=== PATIENT | female | born 1960 | race Caucasian/White ===

== ENCOUNTER 2022-04-01 08:09 | Outpatient (CLI) | payer OTHER, SELFPAY | END 2022-04-01 08:10 | disposition home or self-care (01) | PROVIDERS: Visit Provider Otolaryngology | DX: H90.3 Sensorineural hearing loss, bilateral (principal) | CPT/HCPCS: 92557; 92567 ==

== ENCOUNTER 2022-05-06 13:16 | Outpatient (CLI) | payer OTHER, SELFPAY ==
--- NOTE | ~2022-05-06 | MR_ITS ---
EXAMINATION: MR brain IAC wo/w con DATE: 05/06/2022 14:26 INDICATION: Sensorineural hearing loss TECHNIQUE: Magnetic resonance imaging (MRI) of the brain and internal auditory canals was performed w ithout and with 15 mL Multihance intravenous contrast. Sequences included sagittal and axial T1-weigh eitan FSE, axial diffusion-weighted FS EPI, axial 3D SWAN, axial T2-weighted FLAIR Propeller, axial T2- weighted Propeller, small psizj-cc-mcbg coronal FIESTA, small jdqgl-ld-ddtj coronal T1-weighted FSE, and small hqxgb-st-xerd axial 3D T1-weighted COTE. Postcontrast sequences included axial and coronal T1-weighted FSE and axial 3D T1-weighted COTE. Apparent diffusion coefficient (ADC) maps were creat ed. COMPARISON: None. FINDINGS: There are no areas of restricted diffusion to suggest acute infarction. No intracranial hemorrhage or abnormal intracranial mass lesion. There are a few scattered areas of nonspecific increased T2-weigh eitan signal intensity in the cerebral white matter, predominantly involving the deep and periventricul ar white matter which is within normal limits for age. There are no intraparenchymal signal abnormali ties seen on the other pulse sequences. The ventricles are symmetric and normal in size. There are no abnormal extra-axial fluid collections. Normal seventh/eighth cranial nerve complexes. No cerebellop ontine angles masses. No evidence of mastoid or middle ear fluid. Flow voids are seen in the cerebra l arteries on the T2-weighted sequences consistent with their expected patency. Visualized orbits and soft tissues are unremarkable. There are no areas of abnormal enhancement on the post contrast image s. IMPRESSION: 1. A few small foci of scattered white matter T2 hyperintensity which is within normal limits for age . No acute intracranial process or evident etiology for reported sensorineural hearing loss. Reviewed, dictated and finalized at location A. IMPRESSION: 1. A few small foci of scattered white matter T2 hyperintensity which is within normal limits for age. No acute intracranial process or evident etiology for r eported sensorineural hearing loss.
[2022-05-06 13:49] LABS: Estimated Glomerular Filt Rate > 60
== END 2022-05-06 13:17 | disposition home or self-care (01) ==
PROVIDERS: PCP Family Medicine; Visit Provider Otolaryngology
DX: H90.5 Unspecified sensorineural hearing loss (principal)
CPT/HCPCS: 70553; A9577

== ENCOUNTER 2022-06-14 11:13 | Outpatient (CLI) | payer OTHER, SELFPAY ==
--- NOTE | ~2022-06-14 | MM_ITS ---
EXAMINATION: MM screening cyndy BI w cecilia HISTORY: Screening mammogram TECHNIQUE: Craniocaudal and mediolateral oblique 3-D tomosynthesis images were obtained and synthetic 2-D images were generated. CAD analysis was submitted and interpreted. COMPARISON: No prior mammogram is available for comparison at this institution. BREAST PARENCHYMAL COMPOSITION: The breasts are heterogeneously dense, which may obscure small masses . FINDINGS: RIGHT BREAST: There are possible low-density masses in the outer right breast. LEFT BREAST: Grouped calcifications are present in the middle third of the outer breast which may rel ate to prior excisional biopsy. IMPRESSION: 1. Bilateral breast findings as described above which may represent the patient's baseline however no comparison is currently available. 2. Comparison with prior mammograms is necessary. BI-RADS Category 0: Incomplete: Needs comparison with prior mammograms. Reviewed, dictated and finalized at location A. IMPRESSION: 1. Bilateral breast findings as described above which may represent the patient 's baseline however no comparison is currently available. 2. Comparison with prior mammograms is necessary. BI-RADS Category 0: Incomplete: Needs comparison with prior mammograms.
== END 2022-06-14 11:14 | disposition home or self-care (01) ==
LOC: ANHIMG 11:16
PROVIDERS: PCP Family Medicine; Visit Provider Family Medicine
DX: Z12.31 Encounter for screening mammogram for malignant neoplasm of breast (principal); R92.8 Other abnormal and inconclusive findings on diagnostic imaging of breast
CPT/HCPCS: 77063; 77067

== ENCOUNTER 2022-06-26 14:00 | Outpatient (RCR) | payer OTHER, SELFPAY | END 2022-08-20 23:59 | disposition home or self-care (01) | LOC: ANHAUDASC 14:00 | PROVIDERS: PCP Family Medicine; Visit Provider Otolaryngology | DX: Z46.1 Encounter for fitting and adjustment of hearing aid (principal) | CPT/HCPCS: 99199; V5257 ==

== ENCOUNTER 2022-08-22 12:08 | Outpatient (RCR) | payer OTHER, SELFPAY | END 2022-11-20 23:59 | disposition home or self-care (01) | LOC: ANHAUDASC 12:08 | PROVIDERS: PCP Family Medicine; Visit Provider Family Medicine | DX: Z46.1 Encounter for fitting and adjustment of hearing aid (principal) | CPT/HCPCS: V5014 ==

== ENCOUNTER 2024-02-11 07:06 | Outpatient (CLI) | payer OTHER, SELFPAY ==
--- NOTE | ~2024-02-11 | MM_ITS ---
EXAMINATION: MM screening cyndy BI w cecilia HISTORY: Screening TECHNIQUE: Craniocaudal and mediolateral oblique 3-D tomosynthesis images were obtained and synthetic 2-D images were generated. CAD analysis was submitted and interpreted. COMPARISON: Comparison to multiple prior studies sequentially, with oldest reviewed study dated 08/03. BREAST PARENCHYMAL COMPOSITION: Dense: The breasts are heterogeneously dense, which may obscure small masses FINDINGS: There is no evidence of suspicious mass, calcification, or architectural distortion to sugg est malignancy in either breast. There has been no suspicious interval change. IMPRESSION: 1. No mammographic evidence of malignancy. 2. Recommend routine screening mammography in one year. BI-RADS Category 1: Negative Reviewed, dictated and finalized at location A.
== END 2024-02-11 07:07 ==
PROVIDERS: PCP Family Medicine; Visit Provider Family Medicine
DX: Z12.31 Encounter for screening mammogram for malignant neoplasm of breast (principal)
CPT/HCPCS: 77063; 77067

== ENCOUNTER 2025-03-09 14:08 | Outpatient (CLI) | payer OTHER, SELFPAY ==
--- OUTSIDE RECORDS SUMMARY | 2025-03-09 14:57 | XMS_ITS | Patient Health Record ---
Author Organization [facility] Address [address] [facility] [address] [place] [address] Care Team Providers Care Server Developer Name Role Phone Aurea Romero Unavailable [phone] Migration, Provider Unavailable Unavailable Allergies No Known Allergies Results Component Value Reference Range Notes UDT Reviewed date:05/05/2024 08:56:43 AM Interpretation: Performing Lab: Notes/Report: THC N 0 - 50 ng/ml Cocaine N Amphetamine P Buprenorphine (BUP) N Secobarbital (Bar) N Oxazepam (BZO) N 3-epivlrfaer-4,8-jlppktgf-2, 3-diphen ylpyrrolidine (EDDP) N Methamphetamine (MET) N Methylenedioxymethamphetamine (MDMA) N Morphine (MOP 300/EWP2948) N Methadone (MTD) N Phencyclidine (PCP) N x N PRESCRIBED DRUGS, medMATCH(R ) (79235) Reviewed date:01/26/2025 10:13:01 AM Interpretation: Performing Lab:William LYMAN-[id number] Emmanuel Leyva, [id number] Sam Leone MD Notes/Report: FASTING: NO medMATCH Summary Prescribed Prescribed Not Prescribed Consistent Inconsistent Inconsistent Adderall(TM) Prescribed Drug 1 Adderall(TM) DRUG MONITOR,AMPHETAMINE, W/ DL, QN URINE (45923) Reviewed date:01/26/2025 10:12:50 AM Interpretation: Performing Lab:William ARRIOLA-Scooter [id number] [employer], [place]Brien [id number] Bobo San, Director - [id number] [employer] Notes/Report: FASTING: NO Amphetamine 901 <250 ng/mL medMATCH Amphetamine CONSISTENT Methamphetamine NEGATIVE <250 ng/mL Amphetamines Comments See Am phetamines Notes, LDT Notes Notes and Comments This drug testing is for medical treatment only. Analysis was performed as non-forensic testing and these results should be used only by healthcare providers to render diagnosis or treatment, or to monitor progress of medical conditions. Amphetamines Notes: Amphetamine detected is consistent with the use of the drug Amphetamine. Amphetamine can be a prescribed drug and is also a metabolite of methamphetamine. LDT Notes: Confirmation tests were developed and their analytical performance characteristics have been determined by [employer]. It has not been cleared or approved by the FDA. This assay has been validated pursuant to the CLIA regulations and is used for clinical purposes. medMATCH(R) enables providers to identify if drug use is consistent or inconsistent with a corresponding prescribed medication(s) list. Healthcare Providers needing Interpretation assistance, please contact us at [phone] ( ) M-F, 8am to 10pm EST PRESCRIBED DRUGS, medMATCH(R ) (85394) Reviewed date:12/20/2024 03:03:25 PM Interpretation: Performing Lab:William LYMAN-[id number] Emmanuel [employer], [id number] Sam Leone MD Notes/Report: FASTING: NO medMATCH Summary Prescribed Prescribed Not Prescribed Consistent Inconsistent Inconsistent Amphetamine Prescribed Drug 1 Amphetamine DRUG MONITOR,AMPHETAMINE, W/ DL, QN URINE (69916) Reviewed date:12/20/2024 03:03:12 PM Interpretation: Performing Lab:William ARRIOLA-Scooter [id number] [employer], [place] [id number] Bobo San, Director - [id number] Emmanuel [employer] Notes/Report: FASTING: NO Amphetamine 47210 <250 ng/mL medMATCH Amphetamine CONSISTENT Methamphetamine NEGATIVE <250 ng/mL Amphetamines Comments See Am phetamines Notes, LDT Notes Notes and Comments This drug testing is for medical treatment only. Analysis was performed as non-forensic testing and these results should be used only by healthcare providers to render diagnosis or treatment, or to monitor progress of medical conditions. Amphetamines Notes: Amphetamine detected is consistent with the use of the drug Amphetamine. Amphetamine can be a prescribed drug and is also a metabolite of methamphetamine. LDT Notes: Confirmation tests were developed and their analytical performance characteristics have been determined by [employer]. It has not been cleared or approved by the FDA. This assay has been validated pursuant to the CLIA regulations and is used for clinical purposes. medMATCH(R) enables providers to identify if drug use is consistent or inconsistent with a corresponding prescribed medication(s) list. Healthcare Providers needing Interpretation assistance, please contact us at [phone] ( ) M-F, 8am to 10pm EST PRESCRIBED DRUGS, medMATCH(R ) (24439) Reviewed date:12/20/2024 01:27:34 PM Interpretation: Performing Lab:NURA [employer]-[id number] Светлана [id number] Sam Leone MD Notes/Report: FASTING: NO medMATCH Summary Prescribed Prescribed Not Prescribed Consistent Inconsistent Inconsistent Adderall(TM) Amphetamine Prescribed Drug 1 Adderall(TM) Prescribed Drug 2 Amphetamine DRUG MONITOR,AMPHETAMINE, W/ DL, QN URINE (36361) Reviewed date:12/20/2024 01:28:11 PM Interpretation: Performing Lab:ZEINAB Knok Warren-Scooter [id number] [facility] Yeyo, Scooter [id number] Bobo San, Director - [id number] Emmanuel OronaLockheed Martin-[employer] Notes/Report: FASTING: NO Amphetamine 2143 <250 ng/mL medMATCH Amphetamine CONSISTENT Methamphetamine NEGATIVE <250 ng/mL Amphetamines Comments See Am phetamines Notes, LDT Notes Notes and Comments This drug testing is for medical treatment only. Analysis was performed as non-forensic testing and these results should be used only by healthcare providers to render diagnosis or treatment, or to monitor progress of medical conditions. Amphetamines Notes: Amphetamine detected is consistent with the use of the drug Amphetamine. Amphetamine can be a prescribed drug and is also a metabolite of methamphetamine. LDT Notes: Confirmation tests were developed and their analytical performance characteristics have been determined by [employer]. It has not been cleared or approved by the FDA. This assay has been validated pursuant to the CLIA regulations and is used for clinical purposes. medMATCH(R) enables providers to identify if drug use is consistent or inconsistent with a corresponding prescribed medication(s) list. Healthcare Providers needing Interpretation assistance, please contact us at [phone] ( ) M-F, 8am to 10pm EST UDT Reviewed date:01/19/2025 09:54:47 AM Interpretation: Performing Lab: Notes/Report: THC NEG 0 - 50 ng/ml Cocaine NEG 0 - 300 ng/ml Amphetamine NEG 0 - 1000 ng/ml Buprenorphine (BUP) NEG 0 - 10 ng/ml Secobarbital (Bar) NEG 0 - 300 ng/ml Oxazepam (BZO) NEG 0 - 300 ng/ml 8-cgcexleifu-1,6-fwqbyeig-7, 3-diphen ylpyrrolidine (EDDP) NEG 0 - 300 ng/ml Methamphetamine (MET) NEG 0 - 1000 ng/ml Methylenedioxymethamphetamine (MDMA) NEG 0 - 500 ng/ml Morphine (MOP 300/HEH7105) NEG 0 - 300 ng/ml Methadone (MTD) NEG 0 - 300 ng/ml Phencyclidine (PCP) NEG 0 - 25 ng/ml Nortriptyline (TCA) NEG 0 - 1000 ng/ml Oxycodone NEG 0 - 300 ng/ml x NEG 0 - 300 ng/ml UDT Reviewed date:08/04/2024 09:04:48 AM Interpretation: Performing Lab: Notes/Report: THC N 0 - 50 ng/ml Cocaine N 0 - 300 ng/ml Amphetamine P 0 - 1000 ng/ml Buprenorphine (BUP) N 0 - 10 ng/ml Secobarbital (Bar) N 0 - 300 ng/ml Oxazepam (BZO) N 0 - 300 ng/ml 8-zzezmsmegx-1,9-ucuaopnr-6, 3-diphen ylpyrrolidine (EDDP) N 0 - 300 ng/ml Methamphetamine (MET) N 0 - 1000 ng/ml Methylenedioxymethamphetamine (MDMA) N 0 - 500 ng/ml Morphine (MOP 300/SUT9468) N 0 - 300 ng/ml Methadone (MTD) N 0 - 300 ng/ml Phencyclidine (PCP) N 0 - 25 ng/ml Nortriptyline (TCA) N 0 - 1000 ng/ml Oxycodone N 0 - 300 ng/ml x N 0 - 300 ng/ml Reason For Referral No Information Medications Medication SIG (Take, Route, Frequency, Duration) Notes Start Date End Date Status Amphetamine-Dextroamphet amine 10 MG TAKE 1 TABLET BY MOUTH ONCE DAILY AT NOON Oral at noon for 30 days 03/08/2025 Active Lansoprazole 30 MG Oral 02/04/2024 Active amLODIPine Besylate 2.5 MG TAKE 1 TABLET BY MOUTH DAILY FOR 90 DAYS Oral for 30 Days 7.5 Active FLUoxetine HCl 20 MG 1 capsule Oral Once a day for 90 days Active Amphetamine-Dextroamphet ER 25 MG 1 capsule in the morning Orally Once a day for 30 days pa approved 12/29/2024 Active Amphetamine-Dextroamphet amine 10 MG 1 tablet in the morning Oral once a day for 30 days PA approved 12/29/2024 Active Metoprolol Succinate ER 50 MG 1 tablet Oral Once a day 02/04/2024 Active Amphetamine-Dextroamphet ER 25 MG 1 capsule in the morning Oral Once a day for 30 days 03/08/2025 Active Social History Sex Assigned At : Social History Observation Description Sex Assigned At Female Section Notes: Do you or have you ever smok ed tobacco?: Never smokerHow much tobacco do you smoke?: NoneDo you or have you ever used any other forms of tobacco or nicotine?: NoDo you or have you ever used e-cigarettes or vape?: Never used electronic cigarettesWhat was the date of your most recent tobacco screening?: 02/04/2024Has tobacco cessation counseling been provided?: NoWhat is your level of alcohol consumption?: OccasionalHow many years have you consumed alcohol?: 43Have you ever been counseled for unhealthy alcohol use?: NoDo you use any illicit or recreational drugs?: NoWhich illicit or recreational drugs have you used?: Never- 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, 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; need my brain to functionHave you used IV drugs?: NoWhat is your level of caffeine consumption?: OccasionalEducation and OccupationWhat is the highest grade or level of school you have completed or the highest degree you have received?: Doctoral degree (example:PhD, Jeremy)Are you currently in school?: NoAre you currently employed?: YesWho is your employer?: [employer]What is your occupation?: pulmonaryMarriage and SexualityWhat is your relationship status?: DivorcedAre you sexually active?: NoDo you use protection during sex?: AlwaysHow many children do you have?: 1Home and EnvironmentAre there any guns present in your home?: NoAdvance DirectiveDo you have an advance directive?: YesDo you have a medical power of sawmill hand?: YesPublic Health and TravelHave you been to an area known to be high risk for COVID-19?: NoGender Identity and LGBTQ IdentityGender identity: Identifies as FemaleAssigned sex at : FemaleSexual orientation: Straight or heterosexual Problems Problem Type SNOMED Code ICD Code Onset Dates Problem Status W/U Status Risk Notes Problem Generalized anxiety disorder (05232362) Generalized anxiety disorder (F41.1) 02/04/20 24 Active confirmed Problem Attention deficit hyperactivity disorder, combined type (58281946) Attention-deficit hyperactivity disorder, combined type (F90.2) 03/04/20 24 Active confirmed Problem Sleep apnea (03309318) Sleep apnea, unspecified (G47.30) 02/04/20 24 Active confirmed Problem Long-term current use of drug therapy (422012577) Other medical terminologist (current) drug therapy (Z79.899) 02/04/20 24 Active confirmed Problem Long-term current use of drug therapy (238475279) Other snf (current) drug therapy (V58.69) Active confirmed Vital Signs Heart Rate 74 /min 01/19/2025 Respiratory Rate 16 /min 05/05/2024 Height-cm 162.56 cm 01/19/2025 Blood pressure diastolic 87 mm Hg 01/19/2025 Weight-kg 83.55 kg 01/19/2025 Height 64.00 in 01/19/2025 Blood pressure systolic 143 mm Hg 01/19/2025 Weight 184.2 lbs 01/19/2025 BMI 31.61 kg/m2 01/19/2025 Encounters Encounter Location Date Provider Diagnosis [facility] [address] [place] [address] 05/05/2024 Aurea Romero Generalized anxiety disorder F41.1 ; Attention-deficit hyperactivity disorder, combined type F90.2 ; Sleep apnea, unspecified G47.30 ; Other snf (current) drug therapy Z79.899 and Other snf (current) drug therapy V58.69 [facility] [address] [place] [address] 08/04/2024 Aurea Thery [facility] [address] [place] [address] 08/04/2024 Aurea Romero Generalized anxiety disorder F41.1 ; Attention-deficit hyperactivity disorder, combined type F90.2 ; Sleep apnea, unspecified G47.30 and Other medical terminologist (current) drug therapy Z79.899 [facility] [address] [facility] [address] [place] [address] 10/27/2024 Aurea Romero Generalized anxiety disorder F41.1 ; Attention-deficit hyperactivity disorder, combined type F90.2 ; Sleep apnea, unspecified G47.30 and Other snf (current) drug therapy Z79.899 [facility] [address] [address] 01/19/2025 Aurea Romero Encounter for screening for depression Z13.31 ; Encounter for screening for cardiovascular disorders Z13.6 ; Dietary counseling and surveillance Z71.3 ; Generalized anxiety disorder F41.1 ; Attention-deficit hyperactivity disorder, combined type F90.2 ; Sleep apnea, unspecified G47.30 and Other medical terminologist (current) drug therapy Z79.899 [facility] [address] [place] [address] 03/26/2024 Provider Migration [facility] [address] [facility] [address] [place] [address] 03/27/2024 Provider Migration [place] [address] [place] [address] 11/29/2024 Aruea Romero Attention-deficit hyperactivity disorder, combined type F90.2 [place] [address] [place] [address] 12/06/2024 Aurea Thery Attention-deficit hyperactivity disorder, combined type F90.2 [facility], [facility] [address] [place] [address] 12/06/2024 Aurea Thery Attention-deficit hyperactivity disorder, combined type F90.2 [facility], [facility] [address] [place] [address] 01/19/2025 Aurea Thery [facility], [facility] [address] [place] [address] 04/18/2024 Aurea Thery Attention-deficit hyperactivity disorder, combined type F90.2 [facility], [facility] [address] [place] [address] 05/16/2024 Aurea Thery [facility], [facility] [address] [place] [address] 05/16/2024 Aurea Thery Attention-deficit hyperactivity disorder, combined type F90.2 [facility], [facility] [address] [place] [address] 09/06/2024 Aurea Thery Attention-deficit hyperactivity disorder, combined type F90.2 [facility], [facility] [address] [place] [address] 10/04/2024 Aurea Thery Attention-deficit hyperactivity disorder, combined type F90.2 [facility], [facility] [address] [place] [address] 11/28/2024 Aurea Thery [facility], [facility] [address] [place] [address] 11/28/2024 Aurea Thery Attention-deficit hyperactivity disorder, combined type F90.2 and Other specified attention deficit hyperactivity disorder (ADHD) 314.01 [facility], [facility] [address] [place] [address] 12/28/2024 Aurea Thery Generalized anxiety disorder F41.1 and Attention-deficit hyperactivity disorder, combined type F90.2 [facility], [facility] [address] [place] [address] 01/27/2025 Aurea Thery [facility], [facility] [address] [place] [address] 01/27/2025 Aurea Sibleyuri [facility], [facility] [address] [place] [address] 03/07/2025 Aurea Maryjouri Attention-deficit hyperactivity disorder, combined type F90.2 and Generalized anxiety disorder F41.1 Assessments Encounter Date Diagnosis (ICD Code) Assessment Notes Treatment Notes Treatment Clinical Notes Section Notes 05/16/2024 Attention-defici t hyperactivity disorder, combined type (ICD-10 - F90.2) 11/29/2024 Attention-defici t hyperactivity disorder, combined type (ICD-10 - F90.2) Electronic Prior Authorization was requested for Amphetamine-Dextro amphetamine 5 MG Tablet. Provider can order medication once approval received. 12/06/2024 Attention-defici t hyperactivity disorder, combined type (ICD-10 - F90.2) Electronic Prior Authorization was requested for Amphetamine-Dextro amphet ER 25 MG Capsule Extended Release 24 Hour. Provider can order medication once approval received. 12/06/2024 Attention-defici t hyperactivity disorder, combined type (ICD-10 - F90.2) Electronic Prior Authorization was requested for Amphetamine-Dextro amphetamine 10 MG Tablet. Provider can order medication once approval received. 12/28/2024 Generalized anxiety disorder (ICD-10 - F41.1) 11/28/2024 Attention-defici t hyperactivity disorder, combined type (ICD-10 - F90.2) 03/07/2025 Attention-defici t hyperactivity disorder, combined type (ICD-10 - F90.2) 05/05/2024 Generalized anxiety disorder (ICD-10 - F41.1) Learning About Generalized Anxiety Disorder material was published, Generalized Anxiety Disorder: Care Instructions material was published, Learning About Anxiety Disorders material was published 1. Generalized anxiety disorder - Prozac 20 mg daily - educated on all medications, benefits, side effects and risk, and educated on depression, anxiety, and ADHD, mood d/o and educated on compliance of medications, metabolic and movement d/o education appointment's, continue therapy discussion with patient about course of treatmentand patient instructions. education on serotonin syndrome PCP ordered labs F41.1: Generalized anxiety disorder fluoxetine 20 mg capsule - Take 1 capsule(s) every day by oral route in the morning for 90 days, for anxiety. Qty: (90) capsule Refills: 0 Pharmacy: [facility] 4878 2. Attention deficit hyperactivity disorder, combined type - Adderall XR 25 MG IN AM - stable Adderall 10 m at noonrx sent 04/19/24 ADHD stimulates educationDiscuss with patient risk of misuse, abuse, and addiction beforeprescribing stimulant medicines.[employer] patients not to share their prescribed stimulant withanyone else.Educate patients and their families on these serious risks, properstorage of the medicine, and proper disposal of any unusedmedicine.Edu cated patient will monitor Throughout treatment, regularly assess and monitor them forsigns and symptoms of nonmedical use, addiction, and potentialdiversion , which may be evidenced by more frequent renewal.requests than warranted by the prescribed dosage.[place] [facility] [facility], no early refills on control substanceeducated on non-stimulate and stimulates F90.2: Attention-deficit hyperactivity disorder, combined type Adderall 10 mg tablet - Take 1 tablet(s) every day by oral route at noon for 30 days, for adhd. Qty: (30) tablet Refills: 0 Pharmacy: [facility] 4878 Adderall XR 25 mg capsule,extended release - TAKE 1 CAPSULE BY MOUTH ONCE DAILY IN THE MORNING Qty: (30) capsule Refills: 0 Pharmacy: [facility] 4878 3. Sleep apnea -CPAP G47.30: Sleep apnea, unspecified SLEEP APNEA: CARE INSTRUCTIONS 4. Long-term drug rhxvjwkQ96.899: Other snf (current) drug therapy 05/05/2024 Attention-defici t hyperactivity disorder, combined type (ICD-10 - F90.2) Learning About Attention Deficit Hyperactivity Disorder (ADHD) in Adults material was published, Attention Deficit Hyperactivity Disorder (ADHD) in Adults: Care Instructions material was published, Learning About Stimulant Medicines for Attention Deficit Hyperactivity Disorder (ADHD) material was published 1. Generalized anxiety disorder - Prozac 20 mg daily - educated on all medications, benefits, side effects and risk, and educated on depression, anxiety, and ADHD, mood d/o and educated on compliance of medications, metabolic and movement d/o education appointment's, continue therapy discussion with patient about course of treatmentand patient instructions. education on serotonin syndrome PCP ordered labs F41.1: Generalized anxiety disorder fluoxetine 20 mg capsule - Take 1 capsule(s) every day by oral route in the morning for 90 days, for anxiety. Qty: (90) capsule Refills: 0 Pharmacy: [facility] 4878 2. Attention deficit hyperactivity disorder, combined type - Adderall XR 25 MG IN AM - stable Adderall 10 m at noonrx sent 04/19/24 ADHD stimulates educationDiscuss with patient risk of misuse, abuse, and addiction beforeprescribing stimulant medicines.[employer] patients not to share their prescribed stimulant withanyone else.Educate patients and their families on these serious risks, properstorage of the medicine, and proper disposal of any unusedmedicine.Edu cated patient will monitor Throughout treatment, regularly assess and monitor them forsigns and symptoms of nonmedical use, addiction, and potentialdiversion , which may be evidenced by more frequent renewal.requests than warranted by the prescribed dosage.[place] [facility], no early refills on control substanceeducated on non-stimulate and stimulates F90.2: Attention-deficit hyperactivity disorder, combined type Adderall 10 mg tablet - Take 1 tablet(s) every day by oral route at noon for 30 days, for adhd. Qty: (30) tablet Refills: 0 Pharmacy: [facility] 48 Adderall XR 25 mg capsule,extended release - TAKE 1 CAPSULE BY MOUTH ONCE DAILY IN THE MORNING Qty: (30) capsule Refills: 0 Pharmacy: [facility] 48 3. Sleep apnea -CPAP G47.30: Sleep apnea, unspecified SLEEP APNEA: CARE INSTRUCTIONS 4. Long-term drug ylssulmF70.899: Other snf (current) drug therapy 08/04/2024 Generalized anxiety disorder (ICD-10 - F41.1) Learning About Generalized Anxiety Disorder material was published, Generalized Anxiety Disorder: Care Instructions material was published, Learning About Anxiety Disorders material was published 1. Generalized anxiety disorder - Prozac 20 mg daily - educated on all medications, benefits, side effects and risk, and educated on depression, anxiety, and ADHD, mood d/o and educated on compliance of medications, metabolic and movement d/o education appointment's, continue therapy discussion with patient about course of treatmentand patient instructions. education on serotonin syndrome PCP ordered labs 2. Attention deficit hyperactivity disorder, combined type - Adderall XR 25 MG IN AM - stable Adderall 10 m at noon rx sent 08/04/24 ADHD stimulates educationDiscuss with patient risk of misuse, abuse, and addiction beforeprescribing stimulant medicines.[employer] patients not to share their prescribed stimulant withanyone else.Educate patients and their families on these serious risks, properstorage of the medicine, and proper disposal of any unusedmedicine.Edu cated patient will monitor Throughout treatment, regularly assess and monitor them forsigns and symptoms of nonmedical use, addiction, and potentialdiversion , which may be evidenced by more frequent renewal.requests than warranted by the prescribed dosage.[place], no early refills on control substanceeducated on non-stimulate and stimulates [facility] 3. Sleep apnea -CPAP 4. Long-term drug therapy 08/04/2024 Attention-defici t hyperactivity disorder, combined type (ICD-10 - F90.2) Learning About Attention Deficit Hyperactivity Disorder (ADHD) in Adults material was published, Attention Deficit Hyperactivity Disorder (ADHD) in Adults: Care Instructions material was published, Learning About Stimulant Medicines for Attention Deficit Hyperactivity Disorder (ADHD) material was published 1. Generalized anxiety disorder - Prozac 20 mg daily - educated on all medications, benefits, side effects and risk, and educated on depression, anxiety, and ADHD, mood d/o and educated on compliance of medications, metabolic and movement d/o education appointment's, continue therapy discussion with patient about course of treatmentand patient instructions. education on serotonin syndrome PCP ordered labs 2. Attention deficit hyperactivity disorder, combined type - Adderall XR 25 MG IN AM - stable Adderall 10 m at noon rx sent 08/04/24 ADHD stimulates educationDiscuss with patient risk of misuse, abuse, and addiction beforeprescribing stimulant medicines.[employer] patients not to share their prescribed stimulant withanyone else.Educate patients and their families on these serious risks, properstorage of the medicine, and proper disposal of any unusedmedicine.Edu cated patient will monitor Throughout treatment, regularly assess and monitor them forsigns and symptoms of nonmedical use, addiction, and potentialdiversion , which may be evidenced by more frequent renewal.requests than warranted by the prescribed dosage.[place] no early refills on control substanceeducated on non-stimulate and stimulates [facility] 3. Sleep apnea -CPAP 4. Long-term drug therapy 09/06/2024 Attention-defici t hyperactivity disorder, combined type (ICD-10 - F90.2) 10/04/2024 Attention-defici t hyperactivity disorder, combined type (ICD-10 - F90.2) 10/27/2024 Generalized anxiety disorder (ICD-10 - F41.1) Learning About Generalized Anxiety Disorder material was published, Generalized Anxiety Disorder: Care Instructions material was published, Learning About Anxiety Disorders material was published 1. Generalized anxiety disorder - Prozac 20 mg daily - educated on all medications, benefits, side effects and risk, and educated on depression, anxiety, and ADHD, mood d/o and educated on compliance of medications, metabolic and movement d/o education appointment's, continue therapy discussion with patient about course of treatmentand patient instructions. education on serotonin syndrome PCP ordered labs 2. Attention deficit hyperactivity disorder, combined type - Adderall XR 25 MG IN AM - stable Adderall 10 m at noon rx sent 10/27/24 ADHD stimulates educationDiscuss with patient risk of misuse, abuse, and addiction beforeprescribing stimulant medicines.[employer] patients not to share their prescribed stimulant withanyone else.Educate patients and their families on these serious risks, properstorage of the medicine, and proper disposal of any unusedmedicine.Edu cated patient will monitor Throughout treatment, regularly assess and monitor them forsigns and symptoms of nonmedical use, addiction, and potentialdiversion , which may be evidenced by more frequent renewal.requests than warranted by the prescribed dosage.[place] no early refills on control substanceeducated on non-stimulate and stimulates [facility] 3. Sleep apnea -CPAP 4. Long-term drug therapy 04/18/2024 Attention-defici t hyperactivity disorder, combined type (ICD-10 - F90.2) 01/19/2025 Encounter for screening for depression (ICD-10 - Z13.31) 1. Generalized anxiety disorder - Prozac 20 mg daily - educated on all medications, benefits, side effects and risk, and educated on depression, anxiety, and ADHD, mood d/o and educated on compliance of medications, metabolic and movement d/o education appointment's, continue therapy discussion with patient about course of treatmentand patient instructions. education on serotonin syndrome PCP ordered labs 2. Attention deficit hyperactivity disorder, combined type - Adderall XR 25 MG IN AM - stable Adderall [address] [facility] ADHD stimulates educationDiscuss with patient risk of misuse, abuse, and addiction beforeprescribing stimulant medicines.[employer] patients not to share their prescribed stimulant withanyone else.Educate patients and their families on these serious risks, properstorage of the medicine, and proper disposal of any unusedmedicine.Edu cated patient will monitor Throughout treatment, regularly assess and monitor them forsigns and symptoms of nonmedical use, addiction, and potentialdiversion , which may be evidenced by more frequent renewal.requests than warranted by the prescribed dosage.[place] [facility] [facility], no early refills on control substanceeducated on non-stimulate and stimulates [facility] 3. Sleep apnea -CPAP 4. Long-term drug therapy 03/07/2025 Generalized anxiety disorder (ICD-10 - F41.1) 10/27/2024 Attention-defici t hyperactivity disorder, combined type (ICD-10 - F90.2) Learning About Attention Deficit Hyperactivity Disorder (ADHD) in Adults material was published, Attention Deficit Hyperactivity Disorder (ADHD) in Adults: Care Instructions material was published, Learning About Stimulant Medicines for Attention Deficit Hyperactivity Disorder (ADHD) material was published 1. Generalized anxiety disorder - Prozac 20 mg daily - educated on all medications, benefits, side effects and risk, and educated on depression, anxiety, and ADHD, mood d/o and educated on compliance of medications, metabolic and movement d/o education appointment's, continue therapy discussion with patient about course of treatmentand patient instructions. education on serotonin syndrome PCP ordered labs 2. Attention deficit hyperactivity disorder, combined type - Adderall XR 25 MG IN AM - stable Adderall 10 m at noon rx sent 10/27/24 ADHD stimulates educationDiscuss with patient risk of misuse, abuse, and addiction beforeprescribing stimulant medicines.[employer] patients not to share their prescribed stimulant withanyone else.Educate patients and their families on these serious risks, properstorage of the medicine, and proper disposal of any unusedmedicine.Edu cated patient will monitor Throughout treatment, regularly assess and monitor them forsigns and symptoms of nonmedical use, addiction, and potentialdiversion , which may be evidenced by more frequent renewal.requests than warranted by the prescribed dosage.[place] no early refills on control substanceeducated on non-stimulate and stimulates [facility] 3. Sleep apnea -CPAP 4. Long-term drug therapy 08/04/2024 Sleep apnea, unspecified (ICD-10 - G47.30) Learning About Sleep Apnea material was published, Sleep Apnea: Care Instructions material was published 1. Generalized anxiety disorder - Prozac 20 mg daily - educated on all medications, benefits, side effects and risk, and educated on depression, anxiety, and ADHD, mood d/o and educated on compliance of medications, metabolic and movement d/o education appointment's, continue therapy discussion with patient about course of treatmentand patient instructions. education on serotonin syndrome PCP ordered labs 2. Attention deficit hyperactivity disorder, combined type - Adderall XR 25 MG IN AM - stable Adderall 10 m at noon rx sent 08/04/24 ADHD stimulates educationDiscuss with patient risk of misuse, abuse, and addiction beforeprescribing stimulant medicines.[employer] patients not to share their prescribed stimulant withanyone else.Educate patients and their families on these serious risks, properstorage of the medicine, and proper disposal of any unusedmedicine.Edu cated patient will monitor Throughout treatment, regularly assess and monitor them forsigns and symptoms of nonmedical use, addiction, and potentialdiversion , which may be evidenced by more frequent renewal.requests than warranted by the prescribed dosage.[place] no early refills on control substanceeducated on non-stimulate and stimulates [facility] 3. Sleep apnea -CPAP 4. Long-term drug therapy 05/05/2024 Sleep apnea, unspecified (ICD-10 - G47.30) Learning About Sleep Apnea material was published, Sleep Apnea: Care Instructions material was published 1. Generalized anxiety disorder - Prozac 20 mg daily - educated on all medications, benefits, side effects and risk, and educated on depression, anxiety, and ADHD, mood d/o and educated on compliance of medications, metabolic and movement d/o education appointment's, continue therapy discussion with patient about course of treatmentand patient instructions. education on serotonin syndrome PCP ordered labs F41.1: Generalized anxiety disorder fluoxetine 20 mg capsule - Take 1 capsule(s) every day by oral route in the morning for 90 days, for anxiety. Qty: (90) capsule Refills: 0 Pharmacy: [facility] [id number] 2. Attention deficit hyperactivity disorder, combined type - Adderall XR 25 MG IN AM - stable Adderall 10 m at noonrx sent 04/19/24 ADHD stimulates educationDiscuss with patient risk of misuse, abuse, and addiction beforeprescribing stimulant medicines.[employer] patients not to share their prescribed stimulant withanyone else.Educate patients and their families on these serious risks, properstorage of the medicine, and proper disposal of any unusedmedicine.Edu cated patient will monitor Throughout treatment, regularly assess and monitor them forsigns and symptoms of nonmedical use, addiction, and potentialdiversion , which may be evidenced by more frequent renewal.requests than warranted by the prescribed dosage.[place] [facility] [facility] in [facility], no early refills on control substanceeducated on non-stimulate and stimulates F90.2: Attention-deficit hyperactivity disorder, combined type Adderall 10 mg tablet - Take 1 tablet(s) every day by oral route at noon for 30 days, for adhd. Qty: (30) tablet Refills: 0 Pharmacy: [facility] 4878 Adderall XR 25 mg capsule,extended release - TAKE 1 CAPSULE BY MOUTH ONCE DAILY IN THE MORNING Qty: (30) capsule Refills: 0 Pharmacy: [facility] 4878 3. Sleep apnea -CPAP G47.30: Sleep apnea, unspecified SLEEP APNEA: CARE INSTRUCTIONS 4. Long-term drug [id number]: Other snf (current) drug therapy 11/28/2024 Other specified attention deficit hyperactivity disorder (ADHD) (ICD9-CM - 314.01) 01/19/2025 Encounter for screening for cardiovascular disorders (ICD-10 - Z13.6) 1. Generalized anxiety disorder - Prozac 20 mg daily - educated on all medications, benefits, side effects and risk, and educated on depression, anxiety, and ADHD, mood d/o and educated on compliance of medications, metabolic and movement d/o education appointment's, continue therapy discussion with patient about course of treatmentand patient instructions. education on serotonin syndrome PCP ordered labs 2. Attention deficit hyperactivity disorder, combined type - Adderall XR 25 MG IN AM - stable Adderall 10 m at on [facility] ADHD stimulates educationDiscuss with patient risk of misuse, abuse, and addiction beforeprescribing stimulant medicines.[employer] patients not to share their prescribed stimulant withanyone else.Educate patients and their families on these serious risks, properstorage of the medicine, and proper disposal of any unusedmedicine.Edu cated patient will monitor Throughout treatment, regularly assess and monitor them forsigns and symptoms of nonmedical use, addiction, and potentialdiversion , which may be evidenced by more frequent renewal.requests than warranted by the prescribed dosage.[place] no early refills on control substanceeducated on non-stimulate and stimulates [facility] 3. Sleep apnea -CPAP 4. Long-term drug therapy 12/28/2024 Attention-defici t hyperactivity disorder, combined type (ICD-10 - F90.2) 01/19/2025 Dietary counseling and surveillance (ICD-10 - Z71.3) 1. Generalized anxiety disorder - Prozac 20 mg daily - educated on all medications, benefits, side effects and risk, and educated on depression, anxiety, and ADHD, mood d/o and educated on compliance of medications, metabolic and movement d/o education appointment's, continue therapy discussion with patient about course of treatmentand patient instructions. education on serotonin syndrome PCP ordered labs 2. Attention deficit hyperactivity disorder, combined type - Adderall XR 25 MG IN AM - stable Adderall 10 m at [facility] ADHD stimulates educationDiscuss with patient risk of misuse, abuse, and addiction beforeprescribing stimulant medicines.[employer] patients not to share their prescribed stimulant withanyone else.Educate patients and their families on these serious risks, properstorage of the medicine, and proper disposal of any unusedmedicine.Edu cated patient will monitor Throughout treatment, regularly assess and monitor them forsigns and symptoms of nonmedical use, addiction, and potentialdiversion , which may be evidenced by more frequent renewal.requests than warranted by the prescribed dosage.[place] no early refills on control substanceeducated on non-stimulate and stimulates [facility] 3. Sleep apnea -CPAP 4. Long-term drug therapy 05/05/2024 Other snf (current) drug therapy (ICD-10 - Z79.899) Medication Refill: Care Instructions material was published 1. Generalized anxiety disorder - Prozac 20 mg daily - educated on all medications, benefits, side effects and risk, and educated on depression, anxiety, and ADHD, mood d/o and educated on compliance of medications, metabolic and movement d/o education appointment's, continue therapy discussion with patient about course of treatmentand patient instructions. education on serotonin syndrome PCP ordered labs F41.1: Generalized anxiety disorder fluoxetine 20 mg capsule - Take 1 capsule(s) every day by oral route in the morning for 90 days, for anxiety. Qty: (90) capsule Refills: 0 Pharmacy: [facility] 4841 2. Attention deficit hyperactivity disorder, combined type - Adderall XR 25 MG IN AM - stable Adderall 10 m at noonrx sent 04/19/24 ADHD stimulates educationDiscuss with patient risk of misuse, abuse, and addiction beforeprescribing stimulant medicines.[employer] patients not to share their prescribed stimulant withanyone else.Educate patients and their families on these serious risks, properstorage of the medicine, and proper disposal of any unusedmedicine.Edu cated patient will monitor Throughout treatment, regularly assess and monitor them forsigns and symptoms of nonmedical use, addiction, and potentialdiversion , which may be evidenced by more frequent renewal.requests than warranted by the prescribed dosage.[facility], no early refills on control substanceeducated on non-stimulate and stimulates F90.2: Attention-deficit hyperactivity disorder, combined type Adderall 10 mg tablet - Take 1 tablet(s) every day by oral route at noon for 30 days, for adhd. Qty: (30) tablet Refills: 0 Pharmacy: [facility] 1190 Adderall XR 25 mg capsule,extended release - TAKE 1 CAPSULE BY MOUTH ONCE DAILY IN THE MORNING Qty: (30) capsule Refills: 0 Pharmacy: [facility] 2987 3. Sleep apnea -CPAP G47.30: Sleep apnea, unspecified SLEEP APNEA: CARE INSTRUCTIONS 4. Long-term drug [id number]: Other medical terminologist (current) drug therapy 08/04/2024 Other medical terminologist (current) drug therapy (ICD-10 - Z79.899) Medication Refill: Care Instructions material was published 1. Generalized anxiety disorder - Prozac 20 mg daily - educated on all medications, benefits, side effects and risk, and educated on depression, anxiety, and ADHD, mood d/o and educated on compliance of medications, metabolic and movement d/o education appointment's, continue therapy discussion with patient about course of treatmentand patient instructions. education on serotonin syndrome PCP ordered labs 2. Attention deficit hyperactivity disorder, combined type - Adderall XR 25 MG IN AM - stable Adderall 10 m at noon rx sent 08/04/24 ADHD stimulates educationDiscuss with patient risk of misuse, abuse, and addiction beforeprescribing stimulant medicines.[employer] patients not to share their prescribed stimulant withanyone else.Educate patients and their families on these serious risks, properstorage of the medicine, and proper disposal of any unusedmedicine.Edu cated patient will monitor Throughout treatment, regularly assess and monitor them forsigns and symptoms of nonmedical use, addiction, and potentialdiversion , which may be evidenced by more frequent renewal.requests than warranted by the prescribed dosage.[place] [facility] in [facility], no early refills on control substanceeducated on non-stimulate and stimulates [facility] 3. Sleep apnea -CPAP 4. Long-term drug therapy 10/27/2024 Sleep apnea, unspecified (ICD-10 - G47.30) Learning About Sleep Apnea material was published, Sleep Apnea: Care Instructions material was published 1. Generalized anxiety disorder - Prozac 20 mg daily - educated on all medications, benefits, side effects and risk, and educated on depression, anxiety, and ADHD, mood d/o and educated on compliance of medications, metabolic and movement d/o education appointment's, continue therapy discussion with patient about course of treatmentand patient instructions. education on serotonin syndrome PCP ordered labs 2. Attention deficit hyperactivity disorder, combined type - Adderall XR 25 MG IN AM - stable Adderall 10 m at noon rx sent 10/27/24 ADHD stimulates educationDiscuss with patient risk of misuse, abuse, and addiction beforeprescribing stimulant medicines.[employer] patients not to share their prescribed stimulant withanyone else.Educate patients and their families on these serious risks, properstorage of the medicine, and proper disposal of any unusedmedicine.Edu cated patient will monitor Throughout treatment, regularly assess and monitor them forsigns and symptoms of nonmedical use, addiction, and potentialdiversion , which may be evidenced by more frequent renewal.requests than warranted by the prescribed dosage.[place] no early refills on control substanceeducated on non-stimulate and stimulates [facility] 3. Sleep apnea -CPAP 4. Long-term drug therapy 10/27/2024 Other medical terminologist (current) drug therapy (ICD-10 - Z79.899) Medication Refill: Care Instructions material was published 1. Generalized anxiety disorder - Prozac 20 mg daily - educated on all medications, benefits, side effects and risk, and educated on depression, anxiety, and ADHD, mood d/o and educated on compliance of medications, metabolic and movement d/o education appointment's, continue therapy discussion with patient about course of treatmentand patient instructions. education on serotonin syndrome PCP ordered labs 2. Attention deficit hyperactivity disorder, combined type - Adderall XR 25 MG IN AM - stable Adderall 10 m at noon rx sent 10/27/24 ADHD stimulates educationDiscuss with patient risk of misuse, abuse, and addiction beforeprescribing stimulant medicines.[employer] patients not to share their prescribed stimulant withanyone else.Educate patients and their families on these serious risks, properstorage of the medicine, and proper disposal of any unusedmedicine.[facility] cated patient will monitor Throughout treatment, regularly assess and monitor them forsigns and symptoms of nonmedical use, addiction, and potentialdiversion , which may be evidenced by more frequent renewal.requests than warranted by the prescribed dosage.[place] no early refills on control substanceeducated on non-stimulate and stimulates [facility] 3. Sleep apnea -CPAP 4. Long-term drug therapy 01/19/2025 Generalized anxiety disorder (ICD-10 - F41.1) Learning About Generalized Anxiety Disorder material was published, Generalized Anxiety Disorder: Care Instructions material was published, Learning About Anxiety Disorders material was published 1. Generalized anxiety disorder - Prozac 20 mg daily - educated on all medications, benefits, side effects and risk, and educated on depression, anxiety, and ADHD, mood d/o and educated on compliance of medications, metabolic and movement d/o education appointment's, continue therapy discussion with patient about course of treatmentand patient instructions. education on serotonin syndrome PCP ordered labs 2. Attention deficit hyperactivity disorder, combined type - Adderall XR 25 MG IN AM - stable Adderall 10 m at [facility] ADHD stimulates educationDiscuss with patient risk of misuse, abuse, and addiction beforeprescribing stimulant medicines.[employer] patients not to share their prescribed stimulant withanyone else.Educate patients and their families on these serious risks, properstorage of the medicine, and proper disposal of any unusedmedicine.Edu cated patient will monitor Throughout treatment, regularly assess and monitor them forsigns and symptoms of nonmedical use, addiction, and potentialdiversion , which may be evidenced by more frequent renewal.requests than warranted by the prescribed dosage.[place] [facility], no early refills on control substanceeducated on non-stimulate and stimulates [facility] 3. Sleep apnea -CPAP 4. Long-term drug therapy 01/19/2025 Attention-defici t hyperactivity disorder, combined type (ICD-10 - F90.2) Learning About Attention Deficit Hyperactivity Disorder (ADHD) in Adults material was published, Attention Deficit Hyperactivity Disorder (ADHD) in Adults: Care Instructions material was published, Learning About Stimulant Medicines for Attention Deficit Hyperactivity Disorder (ADHD) material was published 1. Generalized anxiety disorder - Prozac 20 mg daily - educated on all medications, benefits, side effects and risk, and educated on depression, anxiety, and ADHD, mood d/o and educated on compliance of medications, metabolic and movement d/o education appointment's, continue therapy discussion with patient about course of treatmentand patient instructions. education on serotonin syndrome PCP ordered labs 2. Attention deficit hyperactivity disorder, combined type - Adderall XR 25 MG IN AM - stable Adderall 10 m at [facility] ADHD stimulates educationDiscuss with patient risk of misuse, abuse, and addiction beforeprescribing stimulant medicines.[employer] patients not to share their prescribed stimulant withanyone else.Educate patients and their families on these serious risks, properstorage of the medicine, and proper disposal of any unusedmedicine.Edu cated patient will monitor Throughout treatment, regularly assess and monitor them forsigns and symptoms of nonmedical use, addiction, and potentialdiversion , which may be evidenced by more frequent renewal.requests than warranted by the prescribed dosage.[place] no early refills on control substanceeducated on non-stimulate and stimulates [facility] 3. Sleep apnea -CPAP 4. Long-term drug therapy 05/05/2024 Other snf (current) drug therapy (ICD9-CM - V58.69) 1. Generalized anxiety disorder - Prozac 20 mg daily - educated on all medications, benefits, side effects and risk, and educated on depression, anxiety, and ADHD, mood d/o and educated on compliance of medications, metabolic and movement d/o education appointment's, continue therapy discussion with patient about course of treatmentand patient instructions. education on serotonin syndrome PCP ordered labs F41.1: Generalized anxiety disorder fluoxetine 20 mg capsule - Take 1 capsule(s) every day by oral route in the morning for 90 days, for anxiety. Qty: (90) capsule Refills: 0 Pharmacy: [facility] [id number] 2. Attention deficit hyperactivity disorder, combined type - Adderall XR 25 MG IN AM - stable Adderall 10 m at noonrx sent 04/19/24 ADHD stimulates educationDiscuss with patient risk of misuse, abuse, and addiction beforeprescribing stimulant medicines.[employer] patients not to share their prescribed stimulant withanyone else.Educate patients and their families on these serious risks, properstorage of the medicine, and proper disposal of any unusedmedicine.Edu cated patient will monitor Throughout treatment, regularly assess and monitor them forsigns and symptoms of nonmedical use, addiction, and potentialdiversion , which may be evidenced by more frequent renewal.requests than warranted by the prescribed dosage.[place] no early refills on control substanceeducated on non-stimulate and stimulates F90.2: Attention-deficit hyperactivity disorder, combined type Adderall 10 mg tablet - Take 1 tablet(s) every day by oral route at noon for 30 days, for adhd. Qty: (30) tablet Refills: 0 Pharmacy: [facility] 4878 Adderall XR 25 mg capsule,extended release - TAKE 1 CAPSULE BY MOUTH ONCE DAILY IN THE MORNING Qty: (30) capsule Refills: 0 Pharmacy: [facility] [id number] 3. Sleep apnea -CPAP G47.30: Sleep apnea, unspecified SLEEP APNEA: CARE INSTRUCTIONS 4. Long-term drug [id number]: Other medical terminologist (current) drug therapy 01/19/2025 Sleep apnea, unspecified (ICD-10 - G47.30) Learning About Sleep Apnea material was published, Sleep Apnea: Care Instructions material was published 1. Generalized anxiety disorder - Prozac 20 mg daily - educated on all medications, benefits, side effects and risk, and educated on depression, anxiety, and ADHD, mood d/o and educated on compliance of medications, metabolic and movement d/o education appointment's, continue therapy discussion with patient about course of treatmentand patient instructions. education on serotonin syndrome PCP ordered labs 2. Attention deficit hyperactivity disorder, combined type - Adderall XR 25 MG IN AM - stable Adderall 10 m at noon [facility] ADHD stimulates educationDiscuss with patient risk of misuse, abuse, and addiction beforeprescribing stimulant medicines.[employer] patients not to share their prescribed stimulant withanyone else.Educate patients and their families on these serious risks, properstorage of the medicine, and proper disposal of any unusedmedicine.Edu cated patient will monitor Throughout treatment, regularly assess and monitor them forsigns and symptoms of nonmedical use, addiction, and potentialdiversion , which may be evidenced by more frequent renewal.requests than warranted by the prescribed dosage.[place] [facility] in [facility], no early refills on control substanceeducated on non-stimulate and stimulates [facility] 3. Sleep apnea -CPAP 4. Long-term drug therapy 01/19/2025 Other medical terminologist (current) drug therapy (ICD-10 - Z79.899) Medication Refill: Care Instructions material was published 1. Generalized anxiety disorder - Prozac 20 mg daily - educated on all medications, benefits, side effects and risk, and educated on depression, anxiety, and ADHD, mood d/o and educated on compliance of medications, metabolic and movement d/o education appointment's, continue therapy discussion with patient about course of treatmentand patient instructions. education on serotonin syndrome PCP ordered labs 2. Attention deficit hyperactivity disorder, combined type - Adderall XR 25 MG IN AM - stable Adderall 10 m at noon [facility] ADHD stimulates educationDiscuss with patient risk of misuse, abuse, and addiction beforeprescribing stimulant medicines.[employer] patients not to share their prescribed stimulant withanyone else.Educate patients and their families on these serious risks, properstorage of the medicine, and proper disposal of any unusedmedicine.[facility] cated patient will monitor Throughout treatment, regularly assess and monitor them forsigns and symptoms of nonmedical use, addiction, and potentialdiversion , which may be evidenced by more frequent renewal.requests than warranted by the prescribed dosage.[place] no early refills on control substanceeducated on non-stimulate and stimulates [facility] 3. Sleep apnea -CPAP 4. Long-term drug therapy 05/05/2024 Other 1. Generalized anxiety disorder -Prozac 20 mg daily - educated on all medications, benefits, side effects and risk, and educated on depression, anxiety, and ADHD, mood d/o and educated on compliance of medications, metabolic and movement d/o education appointment's, continue therapy discussion with patient about course of treatmentand patient instructions. education on serotonin syndrome PCP ordered labsF41.1: Generalized anxiety disorder fluoxetine 20 mg capsule - Take 1 capsule(s) every day by oral route in the morning for 90 days, for anxiety. Qty: (90) capsule Refills: 0 Pharmacy: [facility] [id number] 2. Attention deficit hyperactivity disorder, combined type -Adderall XR 25 MG IN AM - stableAdderall 10 m at noonrx sent 04/19/24 ADHD stimulates educationDiscuss with patient risk of misuse, abuse, and addiction beforeprescribing stimulant medicines.[employer] patients not to share their prescribed stimulant withanyone else.Educate patients and their families on these serious risks, properstorage of the medicine, and proper disposal of any unusedmedicine.Edu cated patient will monitor Throughout treatment, regularly assess and monitor them forsigns and symptoms of nonmedical use, addiction, and potentialdiversion , which may be evidenced by more frequent renewal.requests than warranted by the prescribed dosage.[place] no early refills on control substanceeducated on non-stimulate and stimulates F90.2: Attention-deficit hyperactivity disorder, combined typeAdderall 10 mg tablet - Take 1 tablet(s) every day by oral route at noon for 30 days, for adhd. Qty: (30) tablet Refills: 0 Pharmacy: [facility] [id number] XR 25 mg capsule,extended release - TAKE 1 CAPSULE BY MOUTH ONCE DAILY IN THE MORNING Qty: (30) capsule Refills: 0 Pharmacy: [facility] 4873 3. Sleep apnea -CPAPG47.30: Sleep apnea, unspecifiedSLEEP APNEA: CARE INSTRUCTIONS 4. Long-term drug [id number]: Other medical terminologist (current) drug therapy, Fluoxetine Oral Capsule (FLUOXETINE - ORAL) material was published 1. Generalized anxiety disorder - Prozac 20 mg daily - educated on all medications, benefits, side effects and risk, and educated on depression, anxiety, and ADHD, mood d/o and educated on compliance of medications, metabolic and movement d/o education appointment's, continue therapy discussion with patient about course of treatmentand patient instructions. education on serotonin syndrome PCP ordered labs F41.1: Generalized anxiety disorder fluoxetine 20 mg capsule - Take 1 capsule(s) every day by oral route in the morning for 90 days, for anxiety. Qty: (90) capsule Refills: 0 Pharmacy: [facility] 6622 2. Attention deficit hyperactivity disorder, combined type - Adderall XR 25 MG IN AM - stable Adderall 10 m at noonrx sent 04/19/24 ADHD stimulates educationDiscuss with patient risk of misuse, abuse, and addiction beforeprescribing stimulant medicines.[employer] patients not to share their prescribed stimulant withanyone else.Educate patients and their families on these serious risks, properstorage of the medicine, and proper disposal of any unusedmedicine.Edu cated patient will monitor Throughout treatment, regularly assess and monitor them forsigns and symptoms of nonmedical use, addiction, and potentialdiversion , which may be evidenced by more frequent renewal.requests than warranted by the prescribed dosage.[place] [facility] in [facility], no early refills on control substanceeducated on non-stimulate and stimulates F90.2: Attention-deficit hyperactivity disorder, combined type Adderall 10 mg tablet - Take 1 tablet(s) every day by oral route at noon for 30 days, for adhd. Qty: (30) tablet Refills: 0 Pharmacy: [facility] 1932 Adderall XR 25 mg capsule,extended release - TAKE 1 CAPSULE BY MOUTH ONCE DAILY IN THE MORNING Qty: (30) capsule Refills: 0 Pharmacy: [facility] 4878 3. Sleep apnea -CPAP G47.30: Sleep apnea, unspecified SLEEP APNEA: CARE INSTRUCTIONS 4. Long-term drug [id number]: Other medical terminologist (current) drug therapy Plan Of Treatment No Information Insurance Providers Payer Name Payer Address Payer Phone Subscriber Number Group Number Insured Name Patient Relationship to Insured Coverage Start Date Coverage End Date [facility] [address] [address] [place] [address] [phone] [id number] NANCY HERNANDEZ Self - patient is the insured Medical (General) History Medical History History ICD Code Problems: Attention deficit hyperactivit y disorder, combined type Generalized anxiety disorder Long-term drug therapy Sleep apnea , Panic Episodes: Y Hypertension: Y Surgical History Surgery Date(Month/Year) Any surgical history Other 11/09/1991
--- OUTSIDE RECORDS SUMMARY | 2025-03-09 14:57 | XMS_ITS | Encounter Summary ---
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
--- OUTSIDE RECORDS SUMMARY | 2025-03-09 14:58 | XMS_ITS | Clinical Summary ---
Author Organization [facility] Address [address] [place] [address] Phone Care Team Providers Care Entry Level Chemist Name Role Phone Osiris Burciaga MD Primary Care Provider [phone] Allergies No known active allergies Medications FLUoxetine (PROZAC) 20 mg Oral tabletIndication s:Breast mass Take 20 mg by mouth daily. Active amphetamine-dext roamphetamine SR 24 hour (ADDERALL XR) 25 mg Oral capsuleIndicatio ns:Breast mass Take 25 mg by mouth daily headrig sawyer. Active amphetamine-dext roamphetamine (ADDERALL) 5 mg Oral tabletIndication s:Breast mass Take 5 mg by mouth daily. Active MULTIVITAMINS WITH FLUORIDE (MULTI-VITAMIN ORAL)Indications :Breast mass Take by mouth. Active Active Problems Patient Care Coordination No te Formatting of this note migh t be different from the original. Primary Care: Osiris Ku MD Referring Provider: Osiris Ku [address] [place] [address] Other: Problem Noted Date Diagnosed Date Breast mass 06/27/2011 Family History Medical History Relation Name Comments Cancer Maternal Aunt Diabetes Mother Relation Name Status Comments Maternal Aunt Mother Social History Tobacco Use Types Packs/Day Years Used Date Smoking Tobacco: Never Smokeless Tobacco: Never Alcohol Use Standard Drinks/Week Comments Yes 0 (1 standard drink = 0.6 oz pur e alcohol) MODERATE Comments Unknown Sex and Gender Information Value Date Recorded Sex Assigned at Not on file 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 Gender Identity Not on file Sexual Orientation Not on file Last Filed Vital Signs Vital Sign Reading Time Taken Comments Blood Pressure 116/79 06/27/2011 10:16 AM CDT Pulse - - Temperature - - Respiratory Rate - - Oxygen Saturation - - Inhaled Oxygen Concentration - - Weight 76.7 kg (169 lb) 06/27/2011 10:16 AM CDT Height 162.6 cm (5' 4 ) 06/27/2011 10:16 AM CDT Body Mass Index 29.01 06/27/2011 10:16 AM CDT Plan of Treatment Health Maintenance Due Date Last Done Comments DTAP/TDAP/TD VACCINES (1 - Tdap) 1980 HPV/Cotest (21-29) 1982 CERVICAL CANCER SCREENING 1991 HPV/Cotest (30-65) 1991 PAP SMEAR 1991 BREAST CANCER SCREENING 2001 COLORECTAL SCREENING 2006 Colorectal Cancer Screening 2006 FIT-DNA Q 3 years 2006 FIT/FOBT Q 1 year 2006 Flex Sig/CT Colonography Q 5 years 2006 ZOSTER VACCINE (1 of 2) 2011 INFLUENZA VACCINE (#1) 2024 RSV VACCINE (60+ or ) (1 - 1-dose 75+ series) 2036 Insurance xmom (Home) [address] BLUE ACCESS CHOICE Care Teams Entry Level Chemist Relationship Specialty Start [place] [address] [place] [address] PCP - General 02/06/09
== END 2025-03-09 14:09 | disposition home or self-care (01) ==
LOC: ANHAUDIO 14:09
PROVIDERS: PCP Family Medicine; Visit Provider Family Medicine
DX: H90.A21 Sensorineural hearing loss, unilateral, right ear, with restricted hearing on the contralateral side (principal); H93.8X2 Other specified disorders of left ear
CPT/HCPCS: 92557; 92567

== ENCOUNTER 2025-04-20 17:41 | Outpatient (CLI) | payer OTHER, SELFPAY ==
--- OUTSIDE RECORDS SUMMARY | 2025-04-20 17:44 | XMS_ITS | Clinical Summary ---
Author Organization [facility] Address [address] [place] [address] Care Team Providers Care Special Skills Officer Name Role Phone Fred Beckie Cecelia MEDRANO Primary Care Provide r Allergies No known active allergies Medications amLODIPine (NORVASC) 5 mg tablet Take 1 tablet (5 mg total) by mouth daily Active cetirizine (ZyrTEC) 10 mg tablet 1 tablet (10 mg total) 02/14/2019 Active dextroamphetami ne-amphetamine XR (ADDERALL XR) 25 mg 24 hr capsule TAKE 1 CAPSULE BY MOUTH ONCE DAILY IN THE MORNING Active fluticasone propionate (Flonase Allergy Relief) 50 mcg/actuation nasal spray 50 mcg 02/14/2019 Active lansoprazole (PREVACID) 30 mg capsule Oral 02/04/2024 Active metoprolol XL (TOPROL-XL) 25 mg extended release tablet Take 1 tablet (25 mg total) by mouth 2 (two) times a day 01/25/2025 Active FLUoxetine (PROzac) 20 mg capsule Take 1 capsule (20 mg total) by mouth daily Active predniSONE (DELTASONE) 20 mg tablet TAKE 3 TABLETS BY MOUTH ONCE DAILY IN THE MORNING FOR 10 DAYS 04/13/2025 Active predniSONE (DELTASONE) 10 mg tabletIndicatio ns:sudden hearing loss Take 5 tablets (50 mg) by mouth daily for 3 days, THEN 4 tablets (40 mg) daily for 2 days, THEN 3 tablets (30 mg) daily for 2 days, THEN 2 tablets (20 mg) daily for 1 day, THEN 1 tablet (10 mg) daily for 1 day. 32 tablet 04/18/2025 Active Active Problems Problem Noted Date Diagnosed Date Essential hypertension 04/18/2025 Perennial allergic rhinitis with seasonal variat ion 04/18/2025 Sudden hearing loss, right 04/18/2025 Sensorineural hearing loss, bilateral 03/30/2025 Attention deficit hyperactivity disorder, combin ed type 03/04/2024 Generalized anxiety disorder 02/04/2024 Sleep apnea 02/04/2024 Breast mass 06/27/2011 Encounters Date Type Department Care Team Description 04/18/2025 9:20 AM CDT [facility] - [facility] ENT [address] [place] [place] [address] [place] [address] Arely Carbajal MD Sudden hearing loss, right (Primary Dx); Sudden right hearing loss 04/18/2025 9:00 AM CDT Procedure visit [facility] Otolaryngology [address] [place] [address] [address] [place] [address] [place] [address] Sensorineural hearing loss (SNHL) of right ear with restricted hearing of left ear (Primary Dx) 03/21/2025 9:59 AM CDT - 03/21/2025 11:59 PM CDT Hospital Encounter [facility] ([facility]) [address] [place] [address] Discharge Disposition: Discharge to home or self care 03/21/2025 8:40 AM CDT Procedure visit [facility] Otolaryngology [address] [place] [address] [address] [place] [address] [place] [address] Sensorineural hearing loss, bilateral (Primary Dx) 03/21/2025 8:00 AM CDT Office [facility] ([facility]) - [facility] ENT [address] [facility] [address] [place] [address] [place] [address] Arely Carbajal MD Sensorineural hearing loss (SNHL) of both ears (Primary Dx); Hearing loss, unspecified hearing loss type, unspecified laterality; Sensorineural hearing loss, bilateral from Last 3 Months Social History Tobacco Use Types Packs/Day Years Used Date Smoking Tobacco: Never Smokeless Tobacco: Never Tobacco Cessation:Counseling Given: No Comments Unknown Sex and Gender Information Value Date Recorded Sex Assigned at Not on file 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 Gender Identity Not on file Sexual Orientation Not on file Obstetrics History Last Filed Vital Signs Vital Sign Reading Time Taken Comments Blood Pressure 148/92 03/21/2025 8:36 AM CDT Pulse 107 03/21/2025 8:36 AM CDT Temperature - - Respiratory Rate - - Oxygen Saturation - - Inhaled Oxygen Concentration - - Weight 85.7 kg (189 lb) 04/18/2025 9:12 AM CDT Height 162.6 cm (5' 4) 04/18/2025 9:12 AM CDT Body Mass Index 32.44 04/18/2025 9:12 AM CDT Plan of Treatment Health Maintenance Due Date Last Done Comments Breast Cancer Screening-Mammogram 1961 Cervical Cancer Screening 1961 Colon Cancer Screening-Colonoscopy 1961 Depression Screening 1961 Hepatitis C Screening 1961 DTaP/Tdap/Td Vaccine (1 - Tdap) 1972 Hepatitis B Screening 1979 Regular Well Visit/Exam 18-64 1979 Zoster Vaccine (2 of 3) 06/07/2014 04/12/2014 Influenza Vaccine Completed 07/12/2024 Covid-19 Vaccine Completed 09/07/2024, 06/2021, 11/17/2020, Additional history exists Pneumococcal vaccine <65 Aged Out No longer eligible based on patient's age to complete this topic Procedures Procedure Name Priority Date/Time Associated Diagnosis Comments AUDBASE RESULTS 04/18/2025 9:09 AM CDT NEURO MR OUTSIDE REFERENCE Routine 03/21/2025 9:59 AM CDT AUDBASE RESULTS 03/21/2025 8:45 AM CDT from Last 3 Months Results * AudBase Results (04/18/2025 9:09 AM CDT) Provider Scanning AUDIOLOGY SERVICES ORDERABLES Edited Result - Final * Neuro MR Outside Reference (03/21/2025 9:59 AM CDT) Impressions [facility] - 03/21/2025 9:59 AM CDT These images are for Reference purposes only and have not been reviewed by [facility] Radiology. There will be no report generated by a [facility] Radiologist. Narrative RAD_STEPHANES[facility] - 03/21/2025 9:59 AM CDT EXAMINATION: Images For Reference Purposes Only Arely Jcakson MD IMG MRI PROCEDURES Fin al Result Performing Organization Address City/State/[facility] Co de Phone Number RAD_[email or web address] * AudBase Results (03/21/2025 8:45 AM CDT) Provider Scanning AUDIOLOGY SERVICES ORDERABLES Final Result from Last 3 Months Insurance [facility] Care Teams Special Skills Officer Relationship Specialty [place] [address] [address] [address] [place] [address] PCP - General Family Medicine 03/17/25
--- OUTSIDE RECORDS SUMMARY | 2025-04-20 17:44 | XMS_ITS | Referral Summary ---
Author Organization [facility] Address [address] [place] [address] Care Team Providers Care Military Professional Name Role Phone Beckie Ibarra Primary Care Provide r Encounters Date Type Department Care Team Description 04/18/2025 9:20 AM CDT [facility] Visit [place] [facility] ([facility]) - [facility] ENT [address] [facility] [address] [place] [address] [place] [phone] Arely Carbajal MD Sudden hearing loss, right (Primary Dx); Sudden right hearing loss 04/18/2025 9:00 AM CDT Procedure visit [facility] Otolaryngology [address] [place] [address] [address] [place] [address] [place] [phone] Sensorineural hearing loss (SNHL) of right ear with restricted hearing of left ear (Primary Dx) 03/21/2025 9:59 AM CDT - 03/21/2025 11:59 PM CDT Hospital Encounter [facility] [place] [facility] ([facility]) [address] [place] [phone] Discharge Disposition: Discharge to home or self care 03/21/2025 8:40 AM CDT Procedure visit [facility] Otolaryngology [address] [place] [address] [address] [place] [address] [place] [phone] Sensorineural hearing loss, bilateral (Primary Dx) 03/21/2025 8:00 AM CDT Office Visit [facility] ([facility]) - [facility] ENT [address] [facility] [address]th [place] [address] [place] [phone] Arely Carbajal MD Sensorineural hearing loss (SNHL) of both ears (Primary Dx); Hearing loss, unspecified hearing loss type, unspecified laterality; Sensorineural hearing loss, bilateral from Last 3 Months Allergies No known active allergies Medications amLODIPine [...] 02/04/2024 Sleep apnea 02/04/2024 Breast mass 06/27/2011 Social History Tobacco Use Types Packs/Day Years Used Date Smoking Tobacco: Never Smokeless Tobacco: Never Tobacco Cessation:Counseling Given: No Comments Unknown Sex and Gender Information Value Date Recorded Sex Assigned at Not on file 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 Gender Identity Not on file Sexual Orientation [...] 04/18/2025 9:12 AM CDT Plan of Treatment Not on file Procedures Procedure Name Priority Date/Time Associated Diagnosis Comments AUDBASE RESULTS 04/18/2025 9:09 AM CDT NEURO MR OUTSIDE REFERENCE Routine 03/21/2025 9:59 AM CDT AUDBASE RESULTS 03/21/2025 8:45 AM CDT from Last 3 Months Results * AudBase Results (04/18/2025 9:09 AM CDT) us Provider Scanning AUDIOLOGY SERVICES ORDERABLES Edited Result - Final * Neuro MR Outside Reference (03/21/2025 9:59 AM CDT) Impressions RAD_PACS[facility] - 03/21/2025 9:59 AM CDT These images are for Reference purposes only and have not been reviewed by [facility] Radiology. There will be no report generated by a [facility] Radiologist. Narrative RAD_PACS[facility] - 03/21/2025 9:59 AM CDT EXAMINATION: Images For Reference Purposes Only Arely Jackson MD IMG MRI PROCEDURES Fin al Result [email or web address] * AudBase Results (03/21/2025 8:45 AM CDT) Provider Scanning AUDIOLOGY SERVICES ORDERABLES Final Result from Last 3 Months Insurance [facility] Care Teams Military Professional Relationship Specialty [place] [address] [place] [address] PCP - General Family Medicine 03/17/25
--- OUTSIDE RECORDS SUMMARY | 2025-04-20 17:44 | XMS_ITS | Clinical Summary ---
Author Organization [facility] Address [address] [place] [address] Phone Care Team Providers Care Renal Technician Name Role Phone Osiris Burciaga MD Primary Care Provider [phone] Allergies No known active allergies Medications FLUoxetine (PROZAC) 20 mg Oral tabletIndication s:Breast mass Take 20 mg by mouth daily. Active amphetamine-dext roamphetamine SR 24 hour (ADDERALL XR) 25 mg Oral capsuleIndicatio ns:Breast mass Take 25 mg by mouth daily visitor services associate. Active amphetamine-dext roamphetamine (ADDERALL) 5 mg Oral tabletIndication s:Breast mass Take 5 mg by mouth daily. Active MULTIVITAMINS WITH FLUORIDE (MULTI-VITAMIN ORAL)Indications :Breast mass Take by mouth. Active Active Problems Patient Care Coordination No te Formatting of this note migh t be different from the original. 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 Gender Identity Not on file Sexual Orientation Not on file Last Filed Vital Signs Vital Sign Reading Time Taken Comments Blood Pressure 116/79 06/27/2011 10:16 AM CDT Pulse - - Temperature - - Respiratory Rate - - Oxygen Saturation - - Inhaled Oxygen Concentration - - Weight 76.7 kg (169 lb) 06/27/2011 10:16 AM CDT Height 162.6 cm (5' 4) 06/27/2011 10:16 AM CDT Body Mass Index [...] 75+ series) 2036 Insurance [employer] (Home) [address] BLUE ACCESS CHOICE Care Teams Renal Technician Relationship Specialty Start [place] [address] [place] [address] PCP - General 02/06/09
--- OUTSIDE RECORDS SUMMARY | 2025-04-20 17:44 | XMS_ITS | Encounter Summary ---
Author Organization [facility] Address [address] [facility] Attn: [place] [address] Care Team Providers Care Research Instructor Name Role Phone Osiris Burciaga MD Primary Care Provider [phone] Encounter Details Date Type Department Care Team (Late st Contact Info) Description 05/22/1995 Outpatient Historical Conversion, History Social History Tobacco Use Types Packs/Day Years Used Date Smoking Tobacco: Never Assessed Comments Unknown Sex and Gender Information Value Date Recorded Sex Assigned at Not on file 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
--- OUTSIDE RECORDS SUMMARY | 2025-04-20 17:44 | XMS_ITS | Patient Health Record ---
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 Name Role Phone Aurea Romero Unavailable [phone] Allergies No Known Allergies Results Component Value Reference Range Notes UDT Reviewed date:05/05/2024 08:56:43 AM Interpretation: Performing Lab: Notes/Report: THC N 0 - 50 ng/ml Cocaine N Amphetamine P Buprenorphine (BUP) N Secobarbital (Bar) N Oxazepam (BZO) N 3-lcatpmtqmp-5,8-jvtdiqna-3, 3-diphen ylpyrrolidine (EDDP) N Methamphetamine (MET) N Methylenedioxymethamphetamine (MDMA) N Morphine (MOP 300/VZF0852) N Methadone (MTD) N Phencyclidine (PCP) N x N PRESCRIBED DRUGS, medMATCH(R ) (70984) Reviewed date:01/26/2025 10:13:01 AM Interpretation: Performing Lab:William LYMAN-[id number] Emmanuel Orona, [id number] Sam Leone MD Notes/Report: FASTING: NO medMATCH Summary Prescribed Prescribed Not Prescribed Consistent Inconsistent Inconsistent Adderall(TM) Prescribed Drug 1 Adderall(TM) DRUG MONITOR,AMPHETAMINE, W/ DL, QN URINE (07038) Reviewed date:01/26/2025 10:12:50 AM Interpretation: Performing Lab:William ARRIOLA-Scooter [id number] Sc[address] [id number] Bobo San, Director - [id number] [facility]Vern[facility] HospitalVestiaire CollectiveSouthwest Regional Rehabilitation CenterTracy Notes/Report: FASTING: NO Amphetamine 901 <250 ng/mL [...] analytical performance characteristics have been determined by [employer]. It has not been cleared or approved by the FDA. This assay has been validated pursuant to the CLIA regulations and is used for clinical purposes. medMATCH(R) enables providers to identify if drug use is consistent or inconsistent with a corresponding prescribed medication(s) list. Healthcare Providers needing Interpretation assistance, please contact us at [phone] ( ) M-F, 8am to 10pm EST PRESCRIBED DRUGS, medMATCH(R ) (89162) Reviewed date:12/20/2024 03:03:25 PM Interpretation: Performing Lab:William LYMAN-[id number] Светлана HallaKS[address] Sam Leone MD Notes/Report: FASTING: NO medMATCH Summary Prescribed Prescribed Not Prescribed Consistent Inconsistent Inconsistent Amphetamine Prescribed Drug 1 Amphetamine DRUG MONITOR,AMPHETAMINE, W/ DL, QN URINE (80375) Reviewed date:12/20/2024 03:03:12 PM Interpretation: Performing Lab:William ARRIOLA-Scooter [id number] [place] [id number] Bobo San, Director - [id number] [facility]-Tracy Notes/Report: FASTING: NO Amphetamine 15332 <250 ng/mL medMATCH Amphetamine CONSISTENT Methamphetamine NEGATIVE [...] analytical performance characteristics have been determined by [employer]. It has not been cleared or approved by the FDA. This assay has been validated pursuant to the CLIA regulations and is used for clinical purposes. medMATCH(R) enables providers to identify if drug use is consistent or inconsistent with a corresponding prescribed medication(s) list. Healthcare Providers needing Interpretation assistance, please contact us at [phone] ( ) M-F, 8am to 10pm EST PRESCRIBED DRUGS, medMATCH(R ) (74102) Reviewed date:12/20/2024 01:27:34 PM Interpretation: Performing Lab:NURA [employer]-[id number] Emmanuel Orona, [id number] Sam Leone MD Notes/Report: FASTING: NO medMATCH Summary Prescribed Prescribed Not Prescribed Consistent Inconsistent Inconsistent Adderall(TM) Amphetamine Prescribed Drug 1 Adderall(TM) Prescribed Drug 2 Amphetamine DRUG MONITOR,AMPHETAMINE, W/ DL, QN URINE (46890) Reviewed date:12/20/2024 01:28:11 PM Interpretation: Performing Lab:William ARRIOLA-Scooter [id number] Mittel Yeyo, Scooter [id number] Bobo San, Director - [address] Emmanuel OronaVestiaire Collective-Tracy Notes/Report: FASTING: NO Amphetamine 2143 <250 ng/mL [...] analytical performance characteristics have been determined by [employer]. It has not been cleared or approved by the FDA. This assay has been validated pursuant to the CLIA regulations and is used for clinical purposes. medMATCH(R) enables providers to identify if drug use is consistent or inconsistent with a corresponding prescribed medication(s) list. Healthcare Providers needing Interpretation assistance, please contact us at [phone] ( ) M-F, 8am to 10pm EST UDT Reviewed date:01/19/2025 09:54:47 AM Interpretation: Performing Lab: Notes/Report: THC NEG 0 - 50 ng/ml Cocaine NEG 0 - 300 ng/ml Amphetamine NEG 0 - 1000 ng/ml Buprenorphine (BUP) NEG 0 - 10 ng/ml Secobarbital (Bar) NEG 0 - 300 ng/ml Oxazepam (BZO) NEG 0 - 300 ng/ml 9-inlqvxtcun-2,7-iayektvp-7, 3-diphen ylpyrrolidine (EDDP) NEG 0 - 300 ng/ml Methamphetamine (MET) NEG 0 - 1000 ng/ml Methylenedioxymethamphetamine (MDMA) NEG 0 - 500 ng/ml Morphine (MOP 300/HTQ0840) NEG 0 - 300 ng/ml Methadone (MTD) [...] Oxazepam (BZO) N 0 - 300 ng/ml 7-rhaahpelxz-5,4-oggkokgr-5, 3-diphen ylpyrrolidine (EDDP) N 0 - 300 ng/ml Methamphetamine (MET) N 0 - 1000 ng/ml Methylenedioxymethamphetamine (MDMA) N 0 - 500 ng/ml Morphine (MOP 300/KQA8041) N 0 - 300 ng/ml Methadone (MTD) [...] Oral Once a day for 30 days 04/05/2025 Active Social History Sex Assigned At : [...] you currently employed?: YesWho is your employer?: [employer] GroupWhat is your occupation?: pulmonaryMarriage and SexualityWhat is your relationship status?: DivorcedAre you sexually active?: NoDo you use protection during sex?: AlwaysHow many children do you have?: 1Home and EnvironmentAre there any guns present in your home?: NoAdvance DirectiveDo you have an advance directive?: YesDo you have a medical power of oil field pipeline supervisor?: YesPublic Health and TravelHave you been to an area known to be high risk for COVID-19?: NoGender Identity and LGBTQ IdentityGender identity: Identifies as FemaleAssigned sex at : FemaleSexual orientation: Straight or heterosexual Problems Problem Type SNOMED Code ICD Code Onset Dates Problem Status W/U Status Risk Notes Problem Generalized anxiety disorder (24401041) Generalized anxiety disorder (F41.1) 02/04/20 24 Active confirmed Problem Attention deficit hyperactivity disorder, combined type (54353974) Attention-deficit hyperactivity disorder, combined type (F90.2) 03/04/20 24 Active confirmed Problem Sleep apnea (55535081) Sleep apnea, unspecified (G47.30) 02/04/20 24 Active confirmed Problem Long-term current use of drug therapy (109743848) 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) 02/04/20 24 Active confirmed Problem Other group home (current) drug therapy (V58.69) Active confirmed Vital Signs Heart Rate 74 /min 01/19/2025 Respiratory Rate 16 /min 05/05/2024 Height-cm 162.56 cm 01/19/2025 Blood pressure diastolic 87 mm Hg 01/19/2025 Weight-kg 83.55 kg 01/19/2025 Height 64.00 in 01/19/2025 Blood pressure systolic 143 mm Hg 01/19/2025 Weight 184.2 lbs 01/19/2025 BMI 31.61 kg/m2 01/19/2025 Encounters Encounter [facility] Date [facility] [address] [place] [address] 05/05/2024 Aurea Thery Generalized anxiety disorder F41.1 ; Attention-deficit hyperactivity disorder, combined type F90.2 ; Sleep apnea, unspecified G47.30 ; Other group home (current) drug therapy Z79.899 and 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 [address] [place] [address] 08/04/2024 Aurea Thery [facility] [address] 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 [address] [place] [address] 11/29/2024 Aurea Thery Attention-deficit hyperactivity disorder, combined type F90.2 [facility] [address] [facility] [address] [place] [address] 12/06/2024 Aurea Thery Attention-deficit hyperactivity disorder, combined type F90.2 [facility] [address] [facility] [address] [place] [address] 12/06/2024 Aurea Thery Attention-deficit hyperactivity disorder, combined type F90.2 [facility] [address] [place] [address] 01/19/2025 Aurea Thery [facility], [facility] [address] [place] [address] 05/16/2024 Aurea Thery [facility], [facility] [address] [place] [address] 05/16/2024 Aurea Thery Attention-deficit hyperactivity disorder, combined type F90.2 [facility] [address] [place] [address] 09/06/2024 Aurea Thery Attention-deficit hyperactivity disorder, combined type F90.2 [facility] [address] [place] [address] 10/04/2024 Aurea Thery Attention-deficit hyperactivity disorder, combined type F90.2 [facility] [address] [place] [address] 11/28/2024 Aurea Thery [facility], [facility] [address] [place] [address] 11/28/2024 Aurea Thery Attention-deficit hyperactivity disorder, combined type F90.2 and Other specified attention deficit hyperactivity disorder (ADHD) 314.01 [facility] [address] [place] [address] 12/28/2024 Aurea Thery Generalized anxiety disorder F41.1 and Attention-deficit hyperactivity disorder, combined type F90.2 [facility] [address] [place] [address] 01/27/2025 Aurea Thery [facility] [address] [place] [address] 01/27/2025 Aurea Thery [facility], [facility] [address] [place] [address] 03/07/2025 Aurea Thery Attention-deficit hyperactivity disorder, combined type F90.2 and Generalized anxiety disorder F41.1 [facility] [address] [place] [address] 04/04/2025 Aurea Thery Attention-deficit hyperactivity disorder, combined type F90.2 Assessments Encounter Date Diagnosis (ICD Code) Assessment [...] Provider can order medication once approval received. 01/19/2025 Encounter for screening for depression (ICD-10 [...] - stable Adderall 10 m at noon [facility] ADHD stimulates educationDiscuss with patient risk of misuse, abuse, and addiction beforeprescribing stimulant medicines.[place]ankman patients not to share their prescribed stimulant [...] prescribed dosage.[place] pharmacy in [facility], no early refills on control substanceeducated on non-stimulate and stimulates [facility] 3. Sleep apnea -CPAP 4. Long-term drug therapy 03/07/2025 Attention-defici t hyperactivity disorder, combined type (ICD-10 - F90.2) 04/04/2025 Attention-defici t hyperactivity disorder, combined type (ICD-10 - F90.2) 12/28/2024 Generalized anxiety disorder (ICD-10 - F41.1) 11/28/2024 Attention-defici t hyperactivity disorder, combined type (ICD-10 - F90.2) 08/04/2024 Generalized anxiety disorder (ICD-10 - F41.1) [...] of misuse, abuse, and addiction beforeprescribing stimulant medicines.[place]ankman patients not to share their prescribed stimulant [...] prescribed dosage.[place] prescription reviewedlocal pharmacy in [facility], no early refills on control substanceeducated on non-stimulate and stimulates [facility] 3. Sleep apnea -CPAP 4. [...] of misuse, abuse, and addiction beforeprescribing stimulant medicines.Tankman patients not to share their prescribed stimulant [...] prescribed dosage.[place] prescription reviewedlocal pharmacy in [facility], no early refills on control substanceeducated on non-stimulate and stimulates [facility] 3. Sleep apnea -CPAP 4. Long-term [...] of misuse, abuse, and addiction beforeprescribing stimulant medicines.Tankman patients not to share their prescribed stimulant withanyone else.Educate patients and their families on these serious risks, properstorage of the medicine, and proper disposal of any unusedmedicine.Edu cat patient will monitor Throughout treatment, regularly assess and monitor them forsigns and symptoms of nonmedical use, addiction, and potentialdiversion , which may be evidenced by more frequent renewal.requests than warranted by the prescribed dosage.[place] no early refills on control substanceeducated on non-stimulate and stimulates [facility] 3. Sleep apnea -CPAP 4. Long-term drug therapy 05/05/2024 Generalized anxiety disorder (ICD-10 - F41.1) [...] anxiety. Qty: (90) capsule Refills: 0 Pharmacy: [facility] 8913 2. Attention deficit hyperactivity disorder, combined type - Adderall XR 25 MG IN AM - stable Adderall 10 m at noonrx sent 04/19/24 ADHD stimulates educationDiscuss with patient risk of misuse, abuse, and addiction beforeprescribing stimulant medicines.[place]ankman patients not to share their prescribed stimulant withanyone else.Educate patients and their families on these serious risks, properstorage of the medicine, and proper disposal of any unusedmedicine.[facility] cated patient will monitor Throughout treatment, regularly [...] adhd. Qty: (30) tablet Refills: 0 Pharmacy: [facility] 4878 Adderall XR 25 mg capsule,extended release - TAKE 1 CAPSULE BY MOUTH ONCE DAILY IN THE MORNING Qty: (30) capsule Refills: 0 Pharmacy: [facility] 4878 3. Sleep apnea -CPAP G47.30: Sleep apnea, unspecified SLEEP APNEA: CARE INSTRUCTIONS 4. 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 Qty: (90) capsule Refills: 0 Pharmacy: [facility] 4878 2. Attention deficit hyperactivity disorder, combined type - Adderall XR 25 MG IN AM - stable Adderall 10 m at noonrx sent 04/19/24 ADHD stimulates educationDiscuss with patient risk of misuse, abuse, and addiction beforeprescribing stimulant medicines.Tankman patients not to share their prescribed stimulant [...] adhd. Qty: (30) tablet Refills: 0 Pharmacy: [facility] 4878 Adderall XR 25 mg capsule,extended release - TAKE 1 CAPSULE BY MOUTH ONCE DAILY IN THE MORNING Qty: (30) capsule Refills: 0 Pharmacy: [facility] 48 3. Sleep apnea -CPAP G47.30: Sleep apnea, unspecified SLEEP APNEA: CARE INSTRUCTIONS 4. Long-term drug pdqaukyK61.899: Other group home (current) drug therapy 05/05/2024 Sleep apnea, unspecified (ICD-10 [...] anxiety. Qty: (90) capsule Refills: 0 Pharmacy: [facility] 48 2. Attention deficit hyperactivity disorder, combined type - Adderall XR 25 MG IN AM - stable Adderall 10 m at noonrx sent 04/19/24 ADHD stimulates educationDiscuss with patient risk of misuse, abuse, and addiction beforeprescribing stimulant medicines.[place]man patients not to share their prescribed stimulant [...] prescribed dosage.[place] reviewedlocal pharmacy in [facility], no early refills on control substanceeducated on non-stimulate and stimulates F90.2: Attention-deficit hyperactivity disorder, combined type Adderall 10 mg tablet - Take 1 tablet(s) every day by oral route at noon for 30 days, for adhd. Qty: (30) tablet Refills: 0 Pharmacy: [facility] 4878 Adderall XR 25 mg capsule,extended release - TAKE 1 CAPSULE BY MOUTH ONCE DAILY IN THE MORNING Qty: (30) capsule Refills: 0 Pharmacy: [facility] 4878 3. Sleep apnea -CPAP G47.30: Sleep apnea, unspecified SLEEP APNEA: CARE INSTRUCTIONS 4. Long-term drug frpqigsX82.899: Other group home (current) drug therapy 10/27/2024 Attention-defici t hyperactivity disorder, combined type [...] of misuse, abuse, and addiction beforeprescribing stimulant medicines.[place]man patients not to share their prescribed stimulant [...] prescribed dosage.[place] prescription reviewedlocal pharmacy in [facility], no early refills on control substanceeducated on non-stimulate and stimulates [facility] 3. Sleep apnea -CPAP 4. Long-term [...] of misuse, abuse, and addiction beforeprescribing stimulant medicines.[place]man patients not to share their prescribed stimulant [...] prescribed dosage.[place] prescription reviewedlocal pharmacy in [facility], no early refills on control substanceeducated on non-stimulate and stimulates [facility] 3. Sleep apnea -CPAP 4. Long-term drug therapy 11/28/2024 Other specified attention deficit [...] - stable Adderall 10 m at noon [facility] ADHD stimulates educationDiscuss with patient risk of misuse, abuse, and addiction beforeprescribing stimulant medicines.[place]man patients not to share their prescribed stimulant withanyone else.Educate patients and their families on these serious risks, properstorage of the medicine, and proper disposal of any unusedmedicine.[facility] cated patient will monitor Throughout treatment, regularly assess and monitor them forsigns and symptoms of nonmedical use, addiction, and potentialdiversion , which may be evidenced by more frequent renewal.requests than warranted by the prescribed dosage.[place] no early refills on control substanceeducated on non-stimulate and stimulates [facility] 3. Sleep apnea -CPAP 4. Long-term drug therapy 12/28/2024 Attention-defici t hyperactivity disorder, combined type (ICD-10 - F90.2) 03/07/2025 Generalized anxiety disorder (ICD-10 - F41.1) 01/19/2025 Dietary counseling and surveillance (ICD-10 - [...] - stable Adderall 10 m at noon [facility] ADHD stimulates educationDiscuss with patient risk of misuse, abuse, and addiction beforeprescribing stimulant medicines.[place]man patients not to share their prescribed stimulant withanyone else.Educate patients and their families on these serious risks, properstorage of the medicine, and proper disposal of any unusedmedicine.[facility] cat patient will monitor Throughout treatment, regularly assess and monitor them forsigns and symptoms of nonmedical use, addiction, and potentialdiversion , which may be evidenced by more frequent renewal.requests than warranted by the prescribed dosage.[place] no early refills on control substanceeducated on non-stimulate and stimulates [facility] 3. Sleep apnea -CPAP 4. Long-term drug therapy 08/04/2024 Other group home (current) drug therapy (ICD-10 - Z79.899) Medication [...] of misuse, abuse, and addiction beforeprescribing stimulant medicines.Tankman patients not to share their prescribed stimulant [...] warranted by the prescribed dosage.[place] prescription reviewedcal pharmacy in [facility], no early refills on control substanceeducated on non-stimulate and stimulates [facility] 3. Sleep apnea -CPAP 4. Long-term [...] of misuse, abuse, and addiction beforeprescribing stimulant medicines.Tankman patients not to share their prescribed stimulant [...] on control substanceeducated on non-stimulate and stimulates [facility] 3. Sleep apnea -CPAP 4. Long-term drug therapy 05/05/2024 Other group home (current) drug therapy (ICD-10 - Z79.899) Medication [...] anxiety. Qty: (90) capsule Refills: 0 Pharmacy: [facility] 3092 2. Attention deficit hyperactivity disorder, combined type - Adderall XR 25 MG IN AM - stable Adderall 10 m at noonrx sent 04/19/24 ADHD stimulates educationDiscuss with patient risk of misuse, abuse, and addiction beforeprescribing stimulant medicines.[place]man patients not to share their prescribed stimulant [...] adhd. Qty: (30) tablet Refills: 0 Pharmacy: [facility] 4838 Adderall XR 25 mg capsule,extended release - TAKE 1 CAPSULE BY MOUTH ONCE DAILY IN THE MORNING Qty: (30) capsule Refills: 0 Pharmacy: [facility] 48 3. Sleep apnea -CPAP G47.30: Sleep apnea, unspecified SLEEP APNEA: CARE INSTRUCTIONS 4. 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 Sleep apnea -CPAP 4. [...] - stable Adderall 10 m at noon [facility] ADHD stimulates educationDiscuss with patient risk of misuse, abuse, and addiction beforeprescribing stimulant medicines.[place]man patients not to share their prescribed stimulant withanyone else.Educate patients and their families on these serious risks, properstorage of the medicine, and proper disposal of any unusedmedicine.[facility] cat patient will monitor Throughout treatment, regularly assess and monitor them forsigns and symptoms of nonmedical use, addiction, and potentialdiversion , which may be evidenced by more frequent renewal.requests than warranted by the prescribed dosage.[place] no early refills on control substanceeducated on non-stimulate and stimulates [facility] 3. Sleep apnea -CPAP 4. Long-term [...] AM - stable Adderall 10 m at [facility] ADHD stimulates educationDiscuss with patient risk of misuse, abuse, and addiction beforeprescribing stimulant medicines.T[place]man patients not to share their prescribed stimulant withanyone else.Educate patients and their families on these serious risks, properstorage of the medicine, and proper disposal of any unusedmedicine.[facility] cated patient will monitor Throughout treatment, regularly assess and monitor them forsigns and symptoms of nonmedical use, addiction, and potentialdiversion , which may be evidenced by more frequent renewal.requests than warranted by the prescribed dosage.[place] no early refills on control substanceeducated on non-stimulate and stimulates [facility] 3. Sleep apnea -CPAP 4. Long-term drug therapy 05/05/2024 Other group home (current) drug therapy (ICD9-CM - V58.69) 1. [...] anxiety. Qty: (90) capsule Refills: 0 Pharmacy: [facility] [id number] 2. Attention deficit hyperactivity disorder, combined type - Adderall XR 25 MG IN AM - stable Adderall 10 m at noonrx sent 04/19/24 ADHD stimulates educationDiscuss with patient risk of misuse, abuse, and addiction beforeprescribing stimulant medicines.[place] patients not to share their prescribed stimulant [...] prescribed dosage.[place] pharmacy in [facility], no early refills on control substanceeducated on non-stimulate and stimulates F90.2: Attention-deficit hyperactivity disorder, combined type Adderall 10 mg tablet - Take 1 tablet(s) every day by oral route at noon for 30 days, for adhd. Qty: (30) tablet Refills: 0 Pharmacy: [facility] [id number] Adderall XR 25 mg capsule,extended release - TAKE 1 CAPSULE BY MOUTH ONCE DAILY IN THE MORNING Qty: (30) capsule Refills: 0 Pharmacy: [facility] 1924 3. Sleep apnea -CPAP G47.30: Sleep apnea, unspecified SLEEP APNEA: CARE INSTRUCTIONS 4. Long-term drug mokiyfpB04.899: Other group home (current) drug therapy 01/19/2025 Sleep apnea, unspecified [...] - stable Adderall 10 [facility] ADHD stimulates educationDiscuss with patient risk of misuse, abuse, and addiction beforeprescribing stimulant medicines.[place] patients not to share their prescribed stimulant withanyone else.Educate patients and their families on these serious risks, properstorage of the medicine, and proper disposal of any unusedmedicine.[facility] cated patient will monitor Throughout treatment, regularly assess and monitor them forsigns and symptoms of nonmedical use, addiction, and potentialdiversion , which may be evidenced by more frequent renewal.requests than warranted by the prescribed dosage.[place] pharmacy in [facility], no early refills on control substanceeducated on non-stimulate and stimulates [facility] 3. Sleep apnea -CPAP 4. 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 Sleep apnea -CPAP 4. Long-term [...] anxiety. Qty: (90) capsule Refills: 0 Pharmacy: [facility] 48 2. Attention deficit hyperactivity disorder, combined type -Adderall XR 25 MG IN AM - stableAdderall 10 m at noonrx sent 04/19/24 ADHD stimulates educationDiscuss with patient risk of misuse, abuse, and addiction beforeprescribing stimulant medicines.[place] patients not to share their prescribed stimulant [...] adhd. Qty: (30) tablet Refills: 0 Pharmacy: [facility] [id number] XR 25 mg capsule,extended release - TAKE 1 CAPSULE BY MOUTH ONCE DAILY IN THE MORNING Qty: (30) capsule Refills: 0 Pharmacy: [facility] 48 3. Sleep apnea -CPAPG47.30: Sleep apnea, unspecifiedSLEEP APNEA: CARE INSTRUCTIONS 4. Long-term drug pdehtkhO16.899: Other group home (current) drug therapy, Fluoxetine Oral Capsule (FLUOXETINE [...] anxiety. Qty: (90) capsule Refills: 0 Pharmacy: [facility] 48 2. Attention deficit hyperactivity disorder, combined type - Adderall XR 25 MG IN AM - stable Adderall 10 m at noonrx sent 04/19/24 ADHD stimulates educationDiscuss with patient risk of misuse, abuse, and addiction beforeprescribing stimulant medicines.[place] patients not to share their prescribed stimulant withanyone else.Educate patients and their families on these serious risks, properstorage of the medicine, and proper disposal of any unusedmedicine.Edu cated patient will monitor Throughout treatment, regularly assess and monitor them forsigns and symptoms of nonmedical use, addiction, and potentialdiversion , which may be evidenced by more frequent renewal.requests than warranted by the prescribed dosage.[facility], no early refills on control substanceeducated on non-stimulate and stimulates F90.2: Attention-deficit hyperactivity disorder, combined type Adderall 10 mg tablet - Take 1 tablet(s) every day by oral route at noon for 30 days, for adhd. Qty: (30) tablet Refills: 0 Pharmacy: [facility] 4897 Adderall XR 25 mg capsule,extended release - TAKE 1 CAPSULE BY MOUTH ONCE DAILY IN THE MORNING Qty: (30) capsule Refills: 0 Pharmacy: [facility] 48 3. Sleep apnea -CPAP G47.30: Sleep apnea, unspecified SLEEP APNEA: CARE INSTRUCTIONS 4. Long-term drug [id number]: Other group home (current) drug therapy Plan Of Treatment No Information Insurance Providers Payer Name Payer Address Payer Phone Subscriber Number Group Number Insured Name Patient Relationship to Insured Coverage Start Date Coverage End Date [facility] [address] [address] [place] [address] [id number] NANCY HERNANDEZ Self - patient is the insured Medical (General) History Medical History History ICD Code Problems: Attention deficit hyperactivit y disorder, combined type Generalized anxiety disorder Long-term drug therapy Sleep apnea , Panic Episodes: Y Hypertension: Y Surgical History Surgery Date(Month/Year) Any surgical history Other 11/09/1991
[2025-04-20 18:01] LABS: Basophils Percent Auto 0.2 % (0.2-1.2); Hematocrit 47.4 % (37.0-47.0); Hemoglobin 15.2 g/dL (12.0-15.0); Immature Granulocyte Absolute 0.19 K/mm3 (0.00-0.031); Immature Granulocyte Percent A 1.4 % (0-0.5); Lymphocytes Absolute Auto 1.18 K/mm3 (0.9-3.2); Lymphocytes Percent Auto 8.9 % (18.3-44.2); Mean Corpuscular HGB Conc 32.1 g/dl (32-36); Mean Corpuscular Hemoglobin 26.9 pg (26-34); Mean Corpuscular Volume 83.9 fl (80-100); Mean Platelet Volume 9.4 fl (7.4-10.4); Monocytes Absolute Auto 0.3 K/mm3 (0.1-0.6); Monocytes Percent Auto 2.3 % (2.6-8.5); Neutrophils Absolute Auto 11.6 K/mm3 (1.3-6.7); Neutrophils Percent Auto 87.2 % (45.5-73.1); Platelet Count Result 438 k/mm3 (150-375); Red Blood Count 5.65 M/mm3 (4.2-5.4); Red Cell Distribution Width 14.9 % (11.5-14.5); White Blood Count 13.3 K/mm3 (4.5-10.0)
[2025-04-20 18:07] LABS: Alanine Aminotransferase 43 U/L (6-35); Albumin Level 4.6 g/dL (3.5-5.1); Alkaline Phosphatase 171 U/L (38-126); Anion Gap 11 mmol/L (4-12); Aspartate Amino Transferase 50 U/L (14-36); Bilirubin,Total 0.5 mg/dL (0.2-1.3); Blood Urea Nitrogen 18 mg/dL (7-17); Calcium 9.6 mg/dL (8.4-10.2); Carbon Dioxide 23 mmol/L (22-30); Chloride 102 mmol/L (98-107); Estimated Glomerular Filt Rate > 60; Glucose 159 mg/dL (65-110); Potassium 4.3 mmol/L (3.4-5.0); Sodium 136 mmol/L (137-145); Total Protein 7.7 g/dL (6.3-8.2)
[2025-04-20 18:30] LABS: Erythrocyte Sedimentation Rate 1 mm/hr (0-20)
[2025-04-21 14:19] LABS: Thyroid Stimulating Hormone 0.257 uIU/mL (0.465-4.680)
[2025-04-21 15:01] LABS: Hemoglobin A1C 5.8 % (<5.7)
[2025-04-22 01:33] LABS: CRP, High Sensitivity 1.7 mg/L
[2025-04-22 03:09] LABS: Myeloperoxidase Ab <1.0 AI
== END 2025-04-20 17:42 | disposition home or self-care (01) ==
LOC: ANHLAB 17:42
PROVIDERS: PCP Family Medicine; Visit Provider Internal Medicine Critical Care Medicine
DX: H90.3 Sensorineural hearing loss, bilateral (principal)
CPT/HCPCS: 36415; 80053; 83036; 84443; 85025; 85303; 85306; 85652; 86036; 86141

== ENCOUNTER 2025-04-21 14:29 | Outpatient (CLI) | payer SELFPAY ==
--- OUTSIDE RECORDS SUMMARY | 2025-04-21 14:41 | XMS_ITS | Encounter Summary ---
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
--- OUTSIDE RECORDS SUMMARY | 2025-04-21 14:41 | XMS_ITS | Referral Summary ---
Author Organization [facility] Address [address] [place] [address] Care Team Providers Care Superintendent Container Terminal Name Role Phone Beckie Ibarra Primary Care Provide r Encounters Date Type Department Care Team Description 04/18/2025 9:20 AM CDT Office Visit [facility] ([facility]) - [facility] ENT [address] [facility] [address]th [place] [address] [place] [phone] Arely Carbajal MD Sudden hearing loss, right (Primary Dx); Sudden right hearing loss 04/18/2025 9:00 AM CDT Procedure visit [facility] [address] [place] [address] [address]th [place] [address] [place] [phone] Sensorineural hearing loss (SNHL) of right ear with restricted hearing of left ear (Primary Dx) 03/21/2025 9:59 AM CDT - 03/21/2025 11:59 PM CDT Hospital Encounter [facility] ([facility]) [address] [place] [phone] Discharge Disposition: Discharge to home or self care 03/21/2025 8:40 AM CDT Procedure visit [facility] [address] [place] [address] [address]th [place] [address] [place] [phone] Sensorineural hearing loss, bilateral (Primary Dx) 03/21/2025 8:00 AM CDT Office Visit [facility] ([facility]) - [facility] ENT [address] [facility] 11th [place] [address] [place] [phone] Arely Carbajal MD Sensorineural hearing loss (SNHL) [...] on file Legal Sex Female 3:[address] Gender Identity Not on file Sexual Orientation [...] only and have not been reviewed by [facility]. There will be no report generated by a [facility] Radiologist. Narrative RAD_PACS_[facility] - 03/21/2025 9:59 AM CDT EXAMINATION: Images For Reference Purposes Only Arely Jackson MD IMG MRI PROCEDURES Fin al Result [facility] * AudBase Results (03/21/2025 8:45 AM CDT) Provider Scanning AUDIOLOGY SERVICES ORDERABLES Final Result from Last 3 Months Insurance [facility] HMO/PPO Address: [address] [address] [facility] HMO/PPO Address: [address] [address] [place] [address] Care Teams Superintendent Container Terminal Relationship Specialty Start [place] [address] [place] [address] PCP - General Family Medicine 03/17/25
--- OUTSIDE RECORDS SUMMARY | 2025-04-21 14:41 | XMS_ITS | Clinical Summary ---
Author Organization [facility] Address [address] [place] [address] Care Team Providers Care Psychological Assistant Name Role Phone Fred Beckie Cecelia MEDRANO [...] CDT [facility] - [facility] ENT [address] [facility] Advanced [place] [address] [place] [address] [place] [address] Arely Carbajal MD Sudden hearing loss, right (Primary Dx); Sudden right hearing loss 04/18/2025 9:00 AM CDT Procedure visit [facility] Otolaryngology [address] [place] [address] [address]th [place] [address] [place] [address] Sensorineural hearing loss (SNHL) of right ear with restricted hearing of left ear (Primary Dx) 03/21/2025 9:59 AM CDT - 03/21/2025 11:59 PM CDT Hospital Encounter [facility] ([facility]) [address] [place] [address] Discharge Disposition: Discharge to home or self care 03/21/2025 8:40 AM CDT Procedure visit [facility] Otolaryngology [address] [place] [address] [address]th [place] [address] [place] [address] Sensorineural hearing loss, bilateral (Primary Dx) 03/21/2025 8:00 AM CDT [facility] ([facility]) - [facility] ENT [address] [facility] [address] [place] [address] [place] [address] Arely Carbajal MD Sensorineural hearing loss (SNHL) [...] on file 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 There will be no report generated by a [facility] Radiologist. Narrative [facility] - 03/21/2025 9:59 AM CDT EXAMINATION: Images For Reference Purposes Only Arely Jackson MD IMG MRI PROCEDURES Fin al Result Performing Organization Address City/State/[facility] Co de Phone Number RAD_[facility] * AudBase Results (03/21/2025 8:45 AM CDT) Provider Scanning AUDIOLOGY SERVICES ORDERABLES Final Result from Last 3 Months Insurance [facility] Care Teams Psychological Assistant Relationship Specialty [place] [address] [facility] [address] [place] [address] PCP - General Family Medicine 03/17/25
--- OUTSIDE RECORDS SUMMARY | 2025-04-21 14:41 | XMS_ITS | Clinical Summary ---
Author Organization [facility] Address [address] [place] [address] Phone Care Team Providers Care Core Feeder Name Role Phone Osiris Burciaga MD Primary Care Provider [phone] Allergies No known active allergies Medications FLUoxetine (PROZAC) 20 mg Oral tabletIndication s:Breast mass Take 20 mg by mouth daily. Active amphetamine-dext roamphetamine SR 24 hour (ADDERALL XR) 25 mg Oral capsuleIndicatio ns:Breast mass Take 25 mg by mouth daily bid analyst. Active amphetamine-dext roamphetamine (ADDERALL) 5 mg Oral tabletIndication s:Breast mass Take 5 mg by mouth daily. Active MULTIVITAMINS WITH FLUORIDE (MULTI-VITAMIN ORAL)Indications :Breast mass Take by mouth. Active Active Problems Patient Care Coordination No te Formatting of this note migh t be different from the original. 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
--- OUTSIDE RECORDS SUMMARY | 2025-04-21 14:41 | XMS_ITS | Patient Health Record ---
Author Organization [facility] As LVL6 Address [address] [place] [address] Care Team Providers Care Family Day Care Provider Name Role Phone Aurea Romero Unavailable [phone] Allergies No Known Allergies Results Component Value Reference Range Notes UDT Reviewed date:05/05/2024 08:56:43 AM Interpretation: Performing Lab: Notes/Report: THC N 0 - 50 ng/ml Cocaine N Amphetamine P Buprenorphine (BUP) N Secobarbital (Bar) N Oxazepam (BZO) N 7-efnbfedzwb-2,1-poxldwqo-6, 3-diphen ylpyrrolidine (EDDP) N Methamphetamine (MET) N Methylenedioxymethamphetamine (MDMA) N Morphine (MOP 300/TZS4708) N Methadone (MTD) N Phencyclidine (PCP) N x N UDT Reviewed date:08/04/2024 09:04:48 AM Interpretation: Performing Lab: Notes/Report: THC N 0 - 50 ng/ml Cocaine N 0 - 300 ng/ml Amphetamine P 0 - 1000 ng/ml Buprenorphine (BUP) N 0 - 10 ng/ml Secobarbital (Bar) N 0 - 300 ng/ml Oxazepam (BZO) N 0 - 300 ng/ml 6-zqnxwtpmnc-3,5-ggyvjdcc-5, 3-diphen ylpyrrolidine (EDDP) N 0 - 300 ng/ml Methamphetamine (MET) N 0 - 1000 ng/ml Methylenedioxymethamphetamine (MDMA) N 0 - 500 ng/ml Morphine (MOP 300/FFO6903) N 0 - 300 ng/ml Methadone (MTD) N 0 - 300 ng/ml Phencyclidine (PCP) N 0 - 25 ng/ml Nortriptyline (TCA) N 0 - 1000 ng/ml Oxycodone N 0 - 300 ng/ml x N 0 - 300 ng/ml UDT Reviewed date:01/19/2025 09:54:47 AM Interpretation: Performing Lab: Notes/Report: THC NEG 0 - 50 ng/ml Cocaine NEG 0 - 300 ng/ml Amphetamine NEG 0 - 1000 ng/ml Buprenorphine (BUP) NEG 0 - 10 ng/ml Secobarbital (Bar) NEG 0 - 300 ng/ml Oxazepam (BZO) NEG 0 - 300 ng/ml 1-hblpkradac-3,9-tgugkyoa-2, 3-diphen ylpyrrolidine (EDDP) NEG 0 - 300 ng/ml Methamphetamine (MET) NEG 0 - 1000 ng/ml Methylenedioxymethamphetamine (MDMA) NEG 0 - 500 ng/ml Morphine (MOP 300/UIQ8860) NEG 0 - 300 ng/ml Methadone (MTD) NEG 0 - 300 ng/ml Phencyclidine (PCP) NEG 0 - 25 ng/ml Nortriptyline (TCA) NEG 0 - 1000 ng/ml Oxycodone NEG 0 - 300 ng/ml x NEG 0 - 300 ng/ml DRUG MONITOR,AMPHETAMINE, W/ DL, QN URINE ([id number]) Reviewed date:12/20/2024 01:28:11 PM Interpretation: Performing Lab:ZEINAB Dely Warren-Scooter [id number] [facility], [facility] HospitalZvdkCJ[address] Bobo San, Director - [id number] [facility] Notes/Report: FASTING: NO Amphetamine 2143 <250 ng/mL [...] analytical performance characteristics have been determined by [employer]. It has not been cleared or approved by the FDA. This assay has been validated pursuant to the CLIA regulations and is used for clinical purposes. medMATCH(R) enables providers to identify if drug use is consistent or inconsistent with a corresponding prescribed medication(s) list. Healthcare Providers needing Interpretation assistance, please contact us at [phone] ( ) M-F, 8am to 10pm EST PRESCRIBED DRUGS, medMATCH(R ) (32123) Reviewed date:12/20/2024 01:27:34 PM Interpretation: Performing Lab:NURA Espinela-[id number] Emmanuel Orona, [id number] Sam Leone MD Notes/Report: FASTING: NO medMATCH Summary Prescribed Prescribed Not Prescribed Consistent Inconsistent Inconsistent Adderall(TM) Amphetamine Prescribed Drug 1 Adderall(TM) Prescribed Drug 2 Amphetamine DRUG MONITOR,AMPHETAMINE, W/ DL, QN URINE ([id number]) Reviewed date:12/20/2024 03:03:12 PM Interpretation: Performing Lab:ZEINAB Espinela-Scooter [id number] Mitte Gordon, [place] [id number] Bobo San, Director - [id number] Emmanuel [employer] TechnologyEspinela-[place] Notes/Report: FASTING: NO Amphetamine 79277 <250 ng/mL medMATCH Amphetamine CONSISTENT Methamphetamine NEGATIVE [...] analytical performance characteristics have been determined by [facility]. It has not been cleared or approved by the FDA. This assay has been validated pursuant to the CLIA regulations and is used for clinical purposes. medMATCH(R) enables providers to identify if drug use is consistent or inconsistent with a corresponding prescribed medication(s) list. Healthcare Providers needing Interpretation assistance, please contact us at [phone] ( ) M-F, 8am to 10pm EST PRESCRIBED DRUGS, medMATCH(R ) (01932) Reviewed date:12/20/2024 03:03:25 PM Interpretation: Performing Lab:NURA [facility]spinela-[id number] Emmanuel Gordonbaldev, [id number] Sam Leone MD Notes/Report: FASTING: NO medMATCH Summary Prescribed Prescribed Not Prescribed Consistent Inconsistent Inconsistent Amphetamine Prescribed Drug 1 Amphetamine DRUG MONITOR,AMPHETAMINE, W/ DL, QN URINE (42291) Reviewed date:01/26/2025 10:12:50 AM Interpretation: Performing Lab:William ARRIOLA-Scooter [id number] [facility] Yeyo, Scooter [id number] Bobo San, Director - [address] Emmanuel [employer] Technology[facility]-[place] Notes/Report: FASTING: NO Amphetamine 901 <250 ng/mL [...] analytical performance characteristics have been determined by [facility]. It has not been cleared or approved by the FDA. This assay has been validated pursuant to the CLIA regulations and is used for clinical purposes. medMATCH(R) enables providers to identify if drug use is consistent or inconsistent with a corresponding prescribed medication(s) list. Healthcare Providers needing Interpretation assistance, please contact us at [phone] ( ) M-F, 8am to 10pm EST PRESCRIBED DRUGS, medMATCH(R ) (65260) Reviewed date:01/26/2025 10:13:01 AM Interpretation: Performing Lab:William LYMAN-[id number] Emmanuel [facility], ToeektHV[address] Sam Leone MD Notes/Report: FASTING: NO medMATCH Summary Prescribed Prescribed Not Prescribed Consistent Inconsistent Inconsistent Adderall(TM) Prescribed Drug 1 Adderall(TM) Reason For Referral No Information Medications Medication [...] you currently employed?: YesWho is your employer?: [employer]What is your 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?: pulmonaryMarriage and SexualityWhat is your relationship status?: DivorcedAre you sexually active?: NoDo you use protection during sex?: AlwaysHow many children do you have?: 1Home and EnvironmentAre there any guns present in your home?: NoAdvance DirectiveDo you have an advance directive?: YesDo you have a medical power of family law attorney?: YesPublic Health and TravelHave you been to an area known to be high risk for COVID-19?: NoGender Identity and LGBTQ IdentityGender identity: Identifies as FemaleAssigned sex at : FemaleSexual orientation: Straight or heterosexual Problems Problem Type SNOMED Code ICD Code Onset Dates Problem Status W/U Status Risk Notes Problem Generalized anxiety disorder (51019611) Generalized anxiety disorder (F41.1) 02/04/20 24 Active confirmed Problem Attention deficit hyperactivity disorder, combined type (33339740) Attention-deficit hyperactivity disorder, combined type (F90.2) 03/04/20 24 Active confirmed Problem Sleep apnea (72664498) Sleep apnea, unspecified (G47.30) 02/04/20 24 Active confirmed Problem Long-term current use of drug therapy (019463833) Other escrow closer (current) drug therapy (Z79.899) 02/04/20 24 Active confirmed Problem Other prison (current) drug therapy (V58.69) Active confirmed Vital Signs Heart Rate 74 /min 01/19/2025 Respiratory Rate 16 /min 05/05/2024 Height-cm 162.56 cm 01/19/2025 Blood pressure diastolic 87 mm Hg 01/19/2025 Weight-kg 83.55 kg 01/19/2025 Height 64.00 in 01/19/2025 Blood pressure systolic 143 mm Hg 01/19/2025 Weight 184.2 lbs 01/19/2025 BMI 31.61 kg/m2 01/19/2025 Encounters Encounter Location Date Provider [facility] [address] [place] [address] 05/05/2024 Aurea Thery Generalized anxiety disorder F41.1 ; Attention-deficit hyperactivity disorder, combined type F90.2 ; Sleep apnea, unspecified G47.30 ; Other prison (current) drug therapy Z79.899 and Other escrow closer (current) drug therapy V58.69 [facility] [address] [facility] [address] [place] [address] 08/04/2024 Aurea Thery [facility] [address] [facility] [address] [place] [address] 08/04/2024 Aurea Thery Generalized anxiety disorder F41.1 ; Attention-deficit hyperactivity disorder, combined type F90.2 ; Sleep apnea, unspecified G47.30 and Other escrow closer (current) drug therapy Z79.899 [facility] [address] [facility] [address] [place] [address] 10/27/2024 Aurea Thery Generalized anxiety disorder F41.1 ; Attention-deficit hyperactivity disorder, combined type F90.2 ; Sleep apnea, unspecified G47.30 and Other escrow closer (current) drug therapy Z79.899 [facility] [address] [facility] [address] [place] [address] 01/19/2025 Aurea Thery Encounter for screen ing for depression Z13.31 ; Encounter for screening for cardiovascular disorders Z13.6 ; Dietary counseling and surveillance Z71.3 ; Generalized anxiety disorder F41.1 ; Attention-deficit hyperactivity disorder, combined type F90.2 ; Sleep apnea, unspecified G47.30 and Other escrow closer (current) drug therapy Z79.899 [facility] [address] [facility] [address] [place] [address] 11/29/2024 Aurea Thery Attention-deficit hyperactivity disorder, combined type F90.2 [facility] [address] [facility] [address] [place] [address] 12/06/2024 Aurea Thery Attention-deficit hyperactivity disorder, combined type F90.2 [facility] [address] [facility] [address] [place] [address] 12/06/2024 Aurea Thery Attention-deficit hyperactivity disorder, combined type F90.2 [facility] [address] [place] [address] 01/19/[address] [facility], [facility] [address] [place] [address] 05/16/[address] [facility], [facility] [address] [place] [address] 05/16/2024 Aurea Thery Attention-deficit hyperactivity disorder, combined type F90.2 [facility] [address] [place] [address] 09/06/2024 Aurea Thery Attention-deficit hyperactivity disorder, combined type F90.2 [facility] [address] [place] [address] 10/04/2024 Aurea Thery Attention-deficit hyperactivity disorder, combined type F90.2 [facility] [address] [place] [address] 11/28/[address] [facility], [facility] [address] [place] [address] 11/28/2024 Aurea Thery Attention-deficit hyperactivity disorder, combined type F90.2 and Other specified attention deficit hyperactivity disorder (ADHD) 314.01 [facility] [address] [place] [address] 12/28/2024 Aurea Thery Generalized anxiety disorder F41.1 and Attention-deficit hyperactivity disorder, combined type F90.2 [facility] [address] [place] [address] 01/27/2025 Aurea Thery [facility] [address] [place] [address] 01/27/[address] [facility], [facility] [address] [place] [address] 03/07/2025 Aurea Thery Attention-deficit hyperactivity disorder, combined type F90.2 and Generalized anxiety disorder F41.1 [facility] [address] [place] [address] 04/04/2025 Aurea Thery Attention-deficit hyperactivity disorder, combined [...] 12/28/2024 Generalized anxiety disorder (ICD-10 - F41.1) 08/04/2024 Generalized anxiety disorder (ICD-10 - F41.1) [...] of misuse, abuse, and addiction beforeprescribing stimulant medicines.Pl[employer] Rol[employer] patients not to share their prescribed stimulant withanyone else.Educate patients and their families on these serious risks, properstorage of the medicine, and proper disposal of any unusedmedicine.Edu cated patient will monitor Throughout treatment, regularly assess and monitor them forsigns and symptoms of nonmedical use, addiction, and potentialdiversion , which may be evidenced by more frequent renewal.requests than warranted by the prescribed dosage.[facility] [place]local pharmacy in [place], no early refills on control substanceeducated on non-stimulate and stimulates [facility] 3. Sleep apnea -CPAP 4. [...] of misuse, abuse, and addiction beforeprescribing stimulant medicines.Plastic Rol[employer] patients not to share their prescribed stimulant [...] prescribed dosage.[place] prescription reviewedlocal pharmacy in [facility], no early refills on control substanceeducated on non-stimulate and stimulates [facility] 3. Sleep apnea -CPAP 4. Long-term [...] of misuse, abuse, and addiction beforeprescribing stimulant medicines.Plastic Roller patients not to share their prescribed stimulant [...] prescribed dosage.[place] prescription reviewedlocal pharmacy in [facility], no early refills on control substanceeducated on non-stimulate and stimulates [facility] 3. Sleep apnea -CPAP 4. [...] anxiety. Qty: (90) capsule Refills: 0 [facility] 9218 2. Attention deficit hyperactivity disorder, combined type - Adderall XR 25 MG IN AM - stable Adderall 10 m at noonrx sent 04/19/24 ADHD stimulates educationDiscuss with patient risk of misuse, abuse, and addiction beforeprescribing stimulant medicines.Plastic Roller patients not to share their prescribed stimulant [...] prescribed dosage.[place] prescription reviewedlocal pharmacy in [facility], no early refills on control substanceeducated on non-stimulate and stimulates F90.2: Attention-deficit hyperactivity disorder, combined type Adderall 10 mg tablet - Take 1 tablet(s) every day by oral route at noon for 30 days, for adhd. Qty: (30) tablet Refills: 0 Pharmacy: [facility] 4878 Adderall XR 25 mg capsule,extended release - TAKE 1 CAPSULE BY MOUTH ONCE DAILY IN THE MORNING Qty: (30) capsule Refills: 0 Pharmacy: [facility] 48 3. Sleep apnea -CPAP G47.30: Sleep apnea, unspecified SLEEP APNEA: CARE INSTRUCTIONS 4. Long-term drug ljrbofbH84.899: Other prison (current) drug therapy 05/05/2024 Attention-defici t hyperactivity [...] anxiety. Qty: (90) capsule Refills: 0 Pharmacy: [facility] 4853 2. Attention deficit hyperactivity disorder, combined type - Adderall XR 25 MG IN AM - stable Adderall 10 m at noonrx sent 04/19/24 ADHD stimulates educationDiscuss with patient risk of misuse, abuse, and addiction beforeprescribing stimulant medicines.Pl[employer] Rol[employer] patients not to share their prescribed stimulant withanyone else.Educate patients and their families on these serious risks, properstorage of the medicine, and proper disposal of any unusedmedicine.[facility] cated patient will monitor Throughout treatment, regularly assess and monitor them forsigns and symptoms of nonmedical use, addiction, and potentialdiversion , which may be evidenced by more frequent renewal.requests than warranted by the prescribed dosage.[place] prescription reviewedlocal pharmacy in [facility], no early refills on control substanceeducated on non-stimulate and stimulates F90.2: Attention-deficit hyperactivity disorder, combined type Adderall 10 mg tablet - Take 1 tablet(s) every day by oral route at noon for 30 days, for adhd. Qty: (30) tablet Refills: 0 Pharmacy: [facility] 4878 Adderall XR 25 mg capsule,extended release - TAKE 1 CAPSULE BY MOUTH ONCE DAILY IN THE MORNING Qty: (30) capsule Refills: 0 Pharmacy: [facility] 4878 3. Sleep apnea -CPAP G47.30: Sleep apnea, unspecified SLEEP APNEA: CARE INSTRUCTIONS 4. Long-term drug ztigbfdL75.899: Other prison (current) drug therapy 11/28/2024 Attention-defici t hyperactivity disorder, combined type [...] - stable Adderall 10 m at noon [facility] ADHD stimulates educationDiscuss with patient risk of misuse, abuse, and addiction beforeprescribing stimulant medicines.Plastic Roller patients not to share their prescribed stimulant withanyone else.Educate patients and their families on these serious risks, properstorage of the medicine, and proper disposal of any unusedmedicine.[facility] cated patient will monitor Throughout treatment, regularly assess and monitor them forsigns and symptoms of nonmedical use, addiction, and potentialdiversion , which may be evidenced by more frequent renewal.requests than warranted by the prescribed dosage.[place] no early refills on control substanceeducated on non-stimulate and stimulates [facility] 3. Sleep apnea -CPAP 4. Long-term drug therapy 03/07/2025 Attention-defici t hyperactivity disorder, combined type (ICD-10 - F90.2) 04/04/2025 Attention-defici t hyperactivity disorder, combined type (ICD-10 - F90.2) 03/07/2025 Generalized anxiety disorder (ICD-10 - F41.1) 11/28/2024 Other specified attention deficit hyperactivity disorder [...] - stable Adderall 10 m at noon [facility] ADHD stimulates educationDiscuss with patient risk of misuse, abuse, and addiction beforeprescribing stimulant medicines.Plastic Roller patients not to share their prescribed stimulant [...] on control substanceeducated on non-stimulate and stimulates [facility] [facility] 3. Sleep apnea -CPAP 4. [...] anxiety. Qty: (90) capsule Refills: 0 Pharmacy: [facility] 4847 2. Attention deficit hyperactivity disorder, combined type - Adderall XR 25 MG IN AM - stable Adderall 10 m at noonrx sent 04/19/24 ADHD stimulates educationDiscuss with patient risk of misuse, abuse, and addiction beforeprescribing stimulant medicines.Plastic Roller patients not to share their prescribed stimulant [...] prescribed dosage.Random [place] prescription reviewedlocal pharmacy in [facility], no early refills on control substanceeducated on non-stimulate and stimulates F90.2: Attention-deficit hyperactivity disorder, combined type Adderall 10 mg tablet - Take 1 tablet(s) every day by oral route at noon for 30 days, for adhd. Qty: (30) tablet Refills: 0 Pharmacy: [facility] 0678 Adderall XR 25 mg capsule,extended release - TAKE 1 CAPSULE BY MOUTH ONCE DAILY IN THE MORNING Qty: (30) capsule Refills: 0 Pharmacy: [facility] 4181 3. Sleep apnea -CPAP G47.30: Sleep apnea, unspecified SLEEP APNEA: CARE INSTRUCTIONS 4. Long-term drug ezltnryB91.899: Other prison (current) drug therapy 10/27/2024 Attention-defici t hyperactivity [...] of misuse, abuse, and addiction beforeprescribing stimulant medicines.Plastic Roller patients not to share their prescribed stimulant [...] prescribed dosage.Random [place] prescription reviewedcal pharmacy in [facility], no early refills on control substanceeducated on non-stimulate and stimulates [facility] 3. Sleep apnea -CPAP 4. Long-term [...] of misuse, abuse, and addiction beforeprescribing stimulant medicines.Plastic Roller patients not to share their prescribed stimulant withanyone else.Educate patients and their families on these serious risks, properstorage of the medicine, and proper disposal of any unusedmedicine.[facility] cated patient will monitor Throughout treatment, regularly assess and monitor them forsigns and symptoms of nonmedical use, addiction, and potentialdiversion , which may be evidenced by more frequent renewal.requests than warranted by the prescribed dosage.[place] prescription reviewedlocal [place], no early refills on control substanceeducated on non-stimulate and stimulates [facility] 3. Sleep apnea -CPAP 4. Long-term drug therapy 12/28/2024 Attention-defici t hyperactivity disorder, combined type (ICD-10 - F90.2) 08/04/2024 Other prison (current) drug therapy (ICD-10 - Z79.899) Medication [...] of misuse, abuse, and addiction beforeprescribing stimulant medicines.Plastic Roller patients not to share their prescribed stimulant [...] on control substanceeducated on non-stimulate and stimulates [facility] 3. Sleep apnea -CPAP 4. Long-term [...] of misuse, abuse, and addiction beforeprescribing stimulant medicines.Plastic Roller patients not to share their prescribed stimulant [...] prescribed dosage.Random [place] prescription reviewedlocal pharmacy in [facility], no early refills on control substanceeducated on non-stimulate and stimulates [facility] 3. Sleep apnea -CPAP 4. Long-term drug therapy 05/05/2024 Other escrow closer (current) drug therapy (ICD-10 - Z79.899) Medication [...] anxiety. Qty: (90) capsule Refills: 0 [facility] 9607 2. Attention deficit hyperactivity disorder, combined type - Adderall XR 25 MG IN AM - stable Adderall 10 m at noonrx sent 04/19/24 ADHD stimulates educationDiscuss with patient risk of misuse, abuse, and addiction beforeprescribing stimulant medicines.Plastic Roller patients not to share their prescribed stimulant [...] prescribed dosage.Random [place]SI[place] prescription reviewedlocal pharmacy in [facility], no early refills on control substanceeducated on non-stimulate and stimulates F90.2: Attention-deficit hyperactivity disorder, combined type Adderall 10 mg tablet - Take 1 tablet(s) every day by oral route at noon for 30 days, for adhd. Qty: (30) tablet Refills: 0 Pharmacy: [facility] 4878 Adderall XR 25 mg capsule,extended release - TAKE 1 CAPSULE BY MOUTH ONCE DAILY IN THE MORNING Qty: (30) capsule Refills: 0 Pharmacy: [facility] 4878 3. Sleep apnea -CPAP G47.30: Sleep apnea, unspecified SLEEP APNEA: CARE INSTRUCTIONS 4. Long-term drug bolzldcD87.899: Other prison (current) drug therapy 01/19/2025 Dietary counseling and surveillance (ICD-10 - [...] - stable Adderall 10 m at noon [facility] ADHD stimulates educationDiscuss with patient risk of misuse, abuse, and addiction beforeprescribing stimulant medicines.Plastic Roller patients not to share their prescribed stimulant [...] prescribed dosage.Random [place] prescription reviewedlocal pharmacy in [facility], no early refills on control substanceeducated on non-stimulate and stimulates [facility] [facility] [facility] 3. Sleep apnea -CPAP 4. Long-term drug therapy 10/27/2024 Other prison (current) drug therapy (ICD-10 - Z79.899) Medication [...] of misuse, abuse, and addiction beforeprescribing stimulant medicines.Plastic Roller patients not to share their prescribed stimulant [...] prescribed dosage.Random [place] prescription reviewedlocal pharmacy in [facility], no early refills on control substanceeducated on non-stimulate and stimulates [facility] [facility] 3. Sleep apnea -CPAP 4. [...] - stable Adderall 10 m at noon [facility] ADHD stimulates educationDiscuss with patient risk of misuse, abuse, and addiction beforeprescribing stimulant medicines.Plastic Roller patients not to share their prescribed stimulant withanyone else.Educate patients and their families on these serious risks, properstorage of the medicine, and proper disposal of any unusedmedicine.[facility] cat patient will monitor Throughout treatment, regularly assess and monitor them forsigns and symptoms of nonmedical use, addiction, and potentialdiversion , which may be evidenced by more frequent renewal.requests than warranted by the prescribed dosage.[place] early refills on control substanceeducated on non-stimulate and stimulates [facility] 3. Sleep apnea -CPAP 4. Long-term [...] AM - stable Adderall 10 m at [facility] ADHD stimulates educationDiscuss with patient risk of misuse, abuse, and addiction beforeprescribing stimulant medicines.[employer] patients not to share their prescribed stimulant withanyone else.Educate patients and their families on these serious risks, properstorage of the medicine, and proper disposal of any unusedmedicine.[facility] cated patient will monitor Throughout treatment, regularly assess and monitor them forsigns and symptoms of nonmedical use, addiction, and potentialdiversion , which may be evidenced by more frequent renewal.requests than warranted by the prescribed dosage.[place] no early refills on control substanceeducated on non-stimulate and stimulates [facility] [facility] 3. Sleep apnea -CPAP 4. Long-term drug therapy 05/05/2024 [facility] (current) drug therapy (ICD9-CM - V58.69) 1. [...] anxiety. Qty: (90) capsule Refills: 0 Pharmacy: [id number] 2. Attention deficit hyperactivity disorder, combined type - Adderall XR 25 MG IN AM - stable Adderall 10 m at [facility] sent 04/19/24 ADHD stimulates educationDiscuss with patient risk of misuse, abuse, and addiction beforeprescribing stimulant medicines.[employer] patients not to share their prescribed stimulant [...] prescribed dosage.[place] in [facility], no early refills on control substanceeducated on non-stimulate and stimulates F90.2: Attention-deficit hyperactivity disorder, combined type Adderall 10 mg tablet - Take 1 tablet(s) every day by oral route at noon for 30 days, for adhd. Qty: (30) tablet Refills: 0 Pharmacy: [facility] [id number] Adderall XR 25 mg capsule,extended release - TAKE 1 CAPSULE BY MOUTH ONCE DAILY IN THE MORNING Qty: (30) capsule Refills: 0 Pharmacy: [id number] 3. Sleep apnea -CPAP G47.30: Sleep apnea, unspecified SLEEP APNEA: CARE INSTRUCTIONS 4. Long-term drug miosyfqK91.899: Other prison (current) drug therapy 01/19/2025 Sleep apnea, unspecified [...] - stable Adderall 10 m at on [facility] ADHD stimulates educationDiscuss with patient risk of misuse, abuse, and addiction beforeprescribing stimulant medicines.[employer] patients not to share their prescribed stimulant withanyone else.Educate patients and their families on these serious risks, properstorage of the medicine, and proper disposal of any unusedmedicine.[facility] cated patient will monitor Throughout treatment, regularly assess and monitor them forsigns and symptoms of nonmedical use, addiction, and potentialdiversion , which may be evidenced by more frequent renewal.requests than warranted by the prescribed dosage.[place] in [facility], no early refills on control substanceeducated on non-stimulate and stimulates [facility] 3. Sleep apnea -CPAP 4. Long-term drug therapy 01/19/2025 Other [facility] (current) drug therapy (ICD-10 - Z79.899) Medication [...] AM - stable Adderall 10 m at [facility] ADHD stimulates educationDiscuss with patient risk of misuse, abuse, and addiction beforeprescribing stimulant medicines.[employer] patients not to share their prescribed stimulant [...] on control substanceeducated on non-stimulate and stimulates [facility] 3. Sleep apnea -CPAP 4. [...] anxiety. Qty: (90) capsule Refills: 0 Pharmacy: [facility] 48 2. Attention deficit hyperactivity disorder, combined type -Adderall XR 25 MG IN AM - stableAdderall 10 m at noonrx sent 04/19/24 ADHD stimulates educationDiscuss with patient risk of misuse, abuse, and addiction beforeprescribing stimulant medicines.[employer] patients not to share their prescribed stimulant [...] adhd. Qty: (30) tablet Refills: 0 Pharmacy: [facility] [id number] XR 25 mg capsule,extended release - TAKE 1 CAPSULE BY MOUTH ONCE DAILY IN THE MORNING Qty: (30) capsule Refills: 0 Pharmacy: [facility] 48 3. Sleep apnea -CPAPG47.30: Sleep apnea, unspecifiedSLEEP APNEA: CARE INSTRUCTIONS 4. Long-term drug [id number]: Other prison (current) drug therapy, Fluoxetine Oral Capsule (FLUOXETINE [...] anxiety. Qty: (90) capsule Refills: 0 Pharmacy: [facility] 48 2. Attention deficit hyperactivity disorder, combined type - Adderall XR 25 MG IN AM - stable Adderall 10 m at noonrx sent 04/19/24 ADHD stimulates educationDiscuss with patient risk of misuse, abuse, and addiction beforeprescribing stimulant medicines.[employer] patients not to share their prescribed stimulant withanyone else.Educate patients and their families on these serious risks, properstorage of the medicine, and proper disposal of any unusedmedicine.[facility] cated patient will monitor Throughout treatment, regularly assess and monitor them forsigns and symptoms of nonmedical use, addiction, and potentialdiversion , which may be evidenced by more frequent renewal.requests than warranted by the prescribed dosage.Random [facility], no early refills on control substanceeducated on non-stimulate and stimulates F90.2: Attention-deficit hyperactivity disorder, combined type Adderall 10 mg tablet - Take 1 tablet(s) every day by oral route at noon for 30 days, for adhd. Qty: (30) tablet Refills: 0 Pharmacy: [facility] [id number] Adderall XR 25 mg capsule,extended release - TAKE 1 CAPSULE BY MOUTH ONCE DAILY IN THE MORNING Qty: (30) capsule Refills: 0 Pharmacy: [facility] 48 3. Sleep apnea -CPAP G47.30: Sleep apnea, unspecified SLEEP APNEA: CARE INSTRUCTIONS 4. Long-term drug [id number]: Other prison (current) drug therapy Plan Of Treatment No Information Insurance Providers Payer Name Payer Address Payer Phone Subscriber Number Group Number Insured Name Patient Relationship to Insured Coverage Start Date Coverage End Date [facility] [address] [address] [place] [phone] [id number] NANCY HERNANDEZ Self - patient is the insured Medical (General) History Medical History History ICD Code Problems: Attention deficit hyperactivit y disorder, combined type Generalized anxiety disorder Long-term drug therapy Sleep apnea , Panic Episodes: Y Hypertension: Y Surgical History Surgery Date(Month/Year) Any surgical history Other 11/09/1991
== END 2025-04-21 14:30 | disposition home or self-care (01) ==
PROVIDERS: PCP Family Medicine; Visit Provider Otolaryngology
DX: H90.5 Unspecified sensorineural hearing loss (principal)
CPT/HCPCS: 99199

== ENCOUNTER 2025-07-07 13:00 | Outpatient (RCR) | payer OTHER, SELFPAY | END 2025-09-28 23:59 | disposition home or self-care (01) | LOC: ANHAUDASC 13:00 | PROVIDERS: PCP Family Medicine; Visit Provider Family Medicine | DX: Z46.1 Encounter for fitting and adjustment of hearing aid (principal) | CPT/HCPCS: 99199; V5221; V5240 ==